=== PATIENT | male | born 1970 | race Caucasian/White ===

== ENCOUNTER 2017-03-11 11:00 | Outpatient (RCR) | payer BC, SELFPAY | END 2017-03-12 23:59 | LOC: NS 11:00 | PROVIDERS: Family Provider Family Medicine; PCP Family Medicine; Visit Provider Family Medicine | DX: E66.01 Morbid (severe) obesity due to excess calories (principal); Z68.39 Body mass index [BMI] 39.0-39.9, adult; Z71.3 Dietary counseling and surveillance | CPT/HCPCS: 97803 ==

== ENCOUNTER 2017-04-08 11:00 | Outpatient (RCR) | payer BC, SELFPAY | END 2017-04-09 23:59 | LOC: NS 11:00 | PROVIDERS: Family Provider Family Medicine; PCP Family Medicine; Visit Provider Family Medicine | DX: E66.01 Morbid (severe) obesity due to excess calories (principal); Z68.39 Body mass index [BMI] 39.0-39.9, adult; Z71.3 Dietary counseling and surveillance | CPT/HCPCS: 97803 ==

== ENCOUNTER 2017-04-29 12:18 | Outpatient (RCR) | payer BC, SELFPAY | END 2017-05-10 23:59 | LOC: NS 12:18 | PROVIDERS: Family Provider Family Medicine; PCP Family Medicine; Visit Provider Family Medicine | DX: E66.01 Morbid (severe) obesity due to excess calories (principal); Z68.39 Body mass index [BMI] 39.0-39.9, adult; Z71.3 Dietary counseling and surveillance | CPT/HCPCS: 97803 ==

== ENCOUNTER 2017-05-27 09:30 | Outpatient (RCR) | payer BC, SELFPAY | END 2017-05-27 09:31 | LOC: NS 09:30 | PROVIDERS: Family Provider Family Medicine; PCP Family Medicine; Visit Provider Family Medicine | DX: E66.01 Morbid (severe) obesity due to excess calories (principal); Z68.39 Body mass index [BMI] 39.0-39.9, adult; Z71.3 Dietary counseling and surveillance | CPT/HCPCS: 97803 ==

== ENCOUNTER 2017-07-21 16:29 | Outpatient (RCR) | payer BC, SELFPAY ==
--- NOTE | 2017-07-21 16:29 | DT_ITS ---
This patient was seen during an EMR downtime July 14, 2017 - July 21, 2017. This patient may have a combination of paper and electronic documentation or all paper documentation. All documentation is viewable within the e-chart portion of [employer] for each patient visit.
== END 2017-08-09 23:59 ==
LOC: NS 16:29
PROVIDERS: Family Provider Family Medicine; PCP Family Medicine; Visit Provider Family Medicine
DX: E66.01 Morbid (severe) obesity due to excess calories (principal); Z68.39 Body mass index [BMI] 39.0-39.9, adult; Z71.3 Dietary counseling and surveillance

== ENCOUNTER → 2018-12-28 11:16 | Outpatient (CLI) | payer OTHER, SELFPAY ==
[2018-12-28 15:37] LABS: Absolute Lymphocyte Count 1.44 X10^3/uL (0.83-4.51); Absolute Neutrophil Count 6.4 X10^3/uL (2.0-7.7); Basophil# 0.01 X10^3/uL; Basophil% 0.1 % (0-1); Hematocrit 43.6 % (40-54); Hemoglobin 15.1 g/dL (13.0-16.5); Lymphocyte # 1.44 X10^3/ul (4.0); Lymphocyte % 16.6 % (19-41); Mean Corp Hgb Conc 34.6 g/dL (32-36); Mean Corpuscular Hgb 30.4 pg (27.0-32.0); Mean Corpuscular Volume 87.9 fL (80-94); Mean Platelet Vol. 9.9 fl (6.2-12.0); Monocyte# 0.76 X10^3/uL; Monocyte% 8.8 % (0-10); NRBC Flagged by Analyzer 0 % (0-5); Neutrophil # 6.37 X10^3/uL (2.7-7.7); Neutrophil % 73.7 % (47-70); Platelet Count 230 K/mm3 (150-450); RBC Distribution Width CV 12.1 % (11.6-14.6); RBC Distribution Width SD 38.5 fl (35.1-43.9); Red Blood Count 4.96 M/mm3 (4.6-6.2); White Blood Count 8.7 K/mm3 (4.4-11.0)
[2018-12-28 15:58] LABS: Hemoglobin A1c 5.5 % (4.2-6.3)
[2018-12-28 16:02] LABS: ALB/GLOB Ratio 0.7 RATIO (0.9-2.4); AST(SGOT) 17 U/L (15-37); Alanine Aminotransfer ALT/SGPT 44 U/L (16-61); Albumin, Serum 3.5 g/dL (3.2-5.0); Alkaline Phosphatase 63 U/L (45-117); Anion Gap 11 (5-15); BUN 15 mg/dL (7-18); BUN/Creat Ratio 20.6 RATIO (10-20); Chloride 104 mmol/L (98-107); Cholesterol 154 mg/dL (200); Creatinine, Serum 0.73 mg/dL (0.70-1.30); EST Glomerular Filtration Rate 121 mL/min (>60); Est Glom Filt Rate - Afr Amer 147 mL/min (>60); Globulin 4.8 g/dL (2.2-4.2); Glucose 102 mg/dL (74-106); High Density Lipoprotein 28 mg/dL; Protein, Total 8.3 g/dL (6.4-8.2); Sodium Level 140 mmol/L (136-145); Triglycerides 77 mg/dL; Very Low Density Lipoprotein 15 mg/dL (5-40)
[2018-12-28 16:06] LABS: Vitamin B12 585 pg/mL (211-911)
[2018-12-28 16:12] LABS: Microalbumin,Random Urine 11.4 mg/L (NO RANGE EST.); Microalbumin:Creatinine Ratio 20.9 mg/g CRE (<30 mg/g CRE)
== END ==
PROVIDERS: Family Provider Family Medicine; PCP Family Medicine; Visit Provider Family Medicine
DX: Z00.00 Encounter for general adult medical examination without abnormal findings (principal); I10 Essential (primary) hypertension; E53.8 Deficiency of other specified B group vitamins
CPT/HCPCS: 36415; 80053; 80061; 82043; 82570; 82607; 83036; 85025

== ENCOUNTER 2021-10-09 13:01 | Observation (INO) | payer OTHER, SELFPAY ==
[2021-10-09 13:02] VITALS: BP 118/92; PULSE 87; RESP 18; TEMP 36.3; O2SAT 93; BMI 37.6
[2021-10-09 14:10] VITALS: RESP 18
--- NOTE | 2021-10-09 14:10 | CT_ITS ---
EXAM: CT SPINE - CERVICAL WITHOUT IV REASON FOR EXAM: Male, 51 years old. NECK PAIN trauma HISTORY: NECK PAIN trauma Individualized dose optimization techniques were used for this CT. TECHNIQUE: Multiplanar images were obtained of the cervical spine. IV contrast was not utilized. COMPARISON: None. FINDINGS: The vertebral bodies do maintain their height. The odontoid process is intact. No pre-vertebral soft tissue swelling is seen. The intravertebral disc height is lost. There are scattered lymph nodes in the neck. There are degenerative changes of the osseous structures. There is bilateral facet arthropathy. There are scattered levels of foraminal stenosis. There are vascular calcifications. There is mild straightening of the normal cervical lordosis. This can suggest neck strain. CT/Spine Cervical without Contras IMPRESSION: Degenerative changes of the cervical spine. There is mild straightening of the normal cervical lordosis. This can suggest neck strain. Electronically Signed: Eloy Jackson MD at 16:27 EDT ,
--- NOTE | 2021-10-09 14:10 | CT_ITS ---
EXAM: CT CHEST, ABDOMEN AND PELVIS WITH INTRAVENOUS CONTRAST CLINICAL INDICATION: trauma -- fall 14 steps, R upper back and lower flank injury Technologist Notes FELL DOWN 14 STEPS YESTERDAY, RT UPPER BACK AND FLANK INJURY, RIB PAIN TECHNIQUE: Helically acquired images were obtained of the chest, abdomen and pelvis with intravenous contrast. This CT exam was performed using one or more of the following dose reduction techniques: automated exposure control, adjustment of the mA and/or kV according to patient size, and/or use of iterative reconstruction technique. This report was created using [employer] report [employer] technology. CONTRAST: IV 100mL [id number] RADIATION DOSE: CTDIvol = 24.55 mGy, DLP = 2375.54 mGy-cm COMPARISON: None. FINDINGS: CHEST: LUNGS AND PLEURAL SPACES: See below. HEART: Unremarkable. Heart size is normal. No pericardial effusion. No significant coronary artery calcifications. MEDIASTINUM: Unremarkable. No mediastinal or hilar adenopathy. Esophagus is unremarkable. No hiatal hernia. THYROID: Unremarkable. No thyroid lesions. ABDOMEN: LIVER: Unremarkable. Homogeneous. No focal mass. GALLBLADDER AND BILE DUCTS: Unremarkable. No calcified gallstones. No gallbladder distention or wall edema. No intra- or extrahepatic biliary ductal dilation. PANCREAS: Unremarkable. No focal cystic or solid mass. SPLEEN: Unremarkable. Normal size without focal cystic or solid mass. ADRENALS: Unremarkable. No nodules. KIDNEYS AND URETERS: Unremarkable. Normal renal size and position. No hydronephrosis. STOMACH AND BOWEL: There is an umbilical hernia containing fat. There is no bowel involvement. There is no incarceration. There is no findings suggesting that this is causing a bowel obstruction. No focal inflammatory change. PELVIS: APPENDIX: The appendix is visualized and is normal. BLADDER: Unremarkable. REPRODUCTIVE: Unremarkable as visualized. No mass. CHEST, ABDOMEN and PELVIS: INTRAPERITONEAL SPACE: Unremarkable. No ascites or other fluid collection. No free air. BONES/JOINTS: Acute fracture of the right second through seventh rib. There is no pneumothorax. Lower lobe atelectasis. Acute left second through fifth lateral rib fractures. No suspicious lytic or blastic abnormality. SOFT TISSUES: See above. VASCULATURE: There are thoracic aortic calcifications consistent for atherosclerotic disease. There is no dissection or hematoma noted in the thoracic aorta. There are calcifications of the abdominal aorta. This is consistent for atherosclerotic disease. There is NO abdominal aortic aneurysm. Vascular workup can be obtained based on clinical correlation. No obvious central pulmonary embolism although this study was not performed with the pulmonary embolism protocol. LYMPH NODES: Unremarkable. No enlarged lymph nodes. CT/CT Chest, Abd, Pel w/Contrast IMPRESSION: Acute fracture of the right second through seventh rib. There is no pneumothorax. Lower lobe atelectasis. Acute left second through fifth lateral rib fractures. Electronically Signed: Eloy Jackson MD at 16:34 EDT ,
--- NOTE | 2021-10-09 14:10 | CT_ITS ---
EXAM: CT MAXILLOFACIAL WITHOUT INTRAVENOUS CONTRAST CLINICAL INDICATION: traumaTechnologist Notes FELL DOWN 14 STEPS YESTERDAY, RT UPPER BACK AND FLANK INJURY, RIB PAIN TECHNIQUE: Helically acquired images were obtained of the face without intravenous contrast. This CT exam was performed using one or more of the following dose reduction techniques: automated exposure control, adjustment of the mA and/or kV according to patient size, and/or use of iterative reconstruction technique. This report was created using [employer] report generation technology. RADIATION DOSE: CTDIvol = 29.38 mGy, DLP = 613.57 mGy-cm COMPARISON: None. FINDINGS: BONES/JOINTS: Unremarkable. No displaced fracture. No discrete lytic or blastic abnormalities. SOFT TISSUES: Unremarkable. No focal subcutaneous swelling. No discrete fluid collections. ORBITS: Unremarkable. Both globes are unremarkable. Extraocular muscles are normal. Retrobulbar fat appears unremarkable. SINUSES: There is a mucous retention cyst and/or polyp of the left maxillary sinus. MASTOID AIR CELLS: Unremarkable as visualized. Clear. DENTAL: No acute findings. No periodontal osseous erosion. CT/Sinus/Facial Bone IMPRESSION: No acute findings in the face. Electronically Signed: Eloy Jackson MD at 16:28 EDT ,
--- NOTE | 2021-10-09 14:10 | CT_ITS ---
STUDY: CT BRAIN WITHOUT CONTRAST REASON FOR EXAM: Male, 51 years old. HEADACHE trauma TECHNIQUE: Transaxial CT imaging of the brain was performed without administration of intravenous contrast material. Individualized dose optimization techniques were used for this CT. COMPARISON: None FINDINGS: Normal calvarium. Normal soft tissues. Normal size ventricles and extra-axial spaces for the patient''s age. Normal white matter tracts of the cerebral hemispheres. Normal basal ganglia and thalami. Normal brainstem. Normal cerebellum. There is no intracranial hemorrhage. There are no findings of an acute ischemic infarction. Normal visualized paranasal sinuses. ASPECTS 10 CT/Brain/Head without Contrast IMPRESSION: There are no acute intracranial findings. Electronically Signed: Eloy Jackson MD at 16:26 EDT ,
--- NOTE | 2021-10-09 14:11 | EKG12_ITS ---
Test Reason : fall Blood Pressure : / mmHG Vent. Rate : 068 BPM Atrial Rate : 068 BPM P-R Int : 124 ms QRS Dur : 098 ms QT Int : 400 ms P-R-T Axes : 037 000 020 degrees QTc Int : 425 ms Normal sinus rhythm Normal ECG Confirmed by OLGA INMAN, MARIE ([id number]), newspaper editor ISRRAEL QUESADA ([id number]) on 10/11/2021 8:10:19 AM Referred By: Carlita Confirmed By:MARIE ESPINOZA MD
--- NOTE | 2021-10-09 14:14 | ED.VIS.FALL ---
HPI HPI - Fall History of Present Illness Chief Complaint: Fall Informant: patient Narrative Narrative: Mechanical fall multiple injuries yesterday at 7:30 PM. Wears compression stockings going down to the basement slipped on carpeted steps directly on his back. He also had a head injury he states may have rolled however denies losing consciousness. No anticoagulation medicines. States stubborn therefore did not come yesterday. History of hypertension on medications. Pain mostly to the lower back and upper back. Pain with deep breaths. Left shoulder pain. Head injuries. Denies headache. Denies nausea or vomiting. Denies any allergies. Tetanus Immunization: >10 years Prior similar symptoms: No PFSH PFSH Medical History HTN (hypertension) Home Medications amlodipine 10 mg tablet 10 mg PO DAILY heart 10/09/21 [History Last Taken 10/09/21] lisinopril 10 mg-hydrochlorothiazide 12.5 mg tablet 1 tab PO DAILY bp 10/09/21 [History Last Taken 10/09/21] Allergy/AdvReac Type Severity Reaction Status Date / Time No Known Allergies Allergy Verified 10/09/21 13:02 Family History (Updated 10/09/21 @ 18:18 by China Chowdary DIMENSIONAL ENGINEER, DIMENSIONAL ENGINEER-C) Father Cancer Prostate Mother Cancer History of breast cancer Social History (Updated 10/09/21 @ 18:19 by China Chowdary NP, DIMENSIONAL ENGINEER-C) household members: spouse Smoking Status: Former smoker alcohol intake: current alcohol intake frequency: a few times a week substance use type: does not use ROS ROS ED Constitutional Constitutional ED: Denies chills, fever(s) or sweats Eyes Eyes: Denies change in vision ENT ENT ED: Denies dysphagia or sore throat Cardiovascular Cardiovascular: Denies chest pain, leg edema, palpitations or racing heartbeat Respiratory/Chest Respiratory/Chest: Denies cough, dyspnea or dyspnea on exertion Gastrointestinal Gastrointestinal: Denies abdominal pain, diarrhea, nausea or vomiting Genitourinary Genitourinary ED: Denies dysuria, hematuria or urinary frequency Musculoskeletal Musculoskeletal: Reports back pain; Denies extremity pain or neck pain Integumentary Denies rash or wounds Neurologic Neurologic: Denies headache(s), paresthesias or weakness EXAM Physical Exam Const Vital Signs: 10/09/21 13:02 10/09/21 13:43 10/09/21 14:10 Temperature 97.3 F L Temperature Source Temporal Pulse Rate 87 Respiratory Rate 18 18 Respiratory Effort Normal Non-Labored Blood Pressure 118/92 H Blood Pressure Mean 100 Pulse Ox 93 Oxygen Delivery Method Room Air Room Air Positive well nourished and well developed Constitutional Narrative: GCS 15 General Appearance ED: well developed and NAD HEENT Reports TM's clear and moist mucous membranes HEENT Narrative: abrasion to the lateral forehead left side. Dried blood in the naris no septal hematoma. No trismus. No zygomatic tenderness. No proptosis or entrapment. normocephalic Tympanic Membrane ED: Yes TM's clear Eyes PERRL, EOMs intact bilaterally and conjunctivae normal General Eye ED: Yes normal appearance of both eyes Neck full ROM, no lymphadenopathy and supple Neck Narrative: No midline tenderness or step-offs. General: Negative for tenderness Chest Wall Chest Narrative: Tender palpation lateral sternum with no crepitus. Symmetric breath sounds. Chest: Negative for tenderness Resp normal respiratory effort and normal air movement Effort and Inspection: symmetric chest movement; Negative for respiratory distress Cardio regular rate, regular rhythm and no murmurs Peripheral Pulses: pulses 2+ throughout GI normal to inspection, nondistended, normoactive bowel sounds and non-tender Palpation: Negative for guarding or rebound tenderness present Back/Spine no CVA tenderness Back/Spine Narrative: No midline tenderness thoracic lumbar spine. There is tenderness along the left thoracic paraspinal region. There is ecchymosis along the lower flank bilaterally left greater than right. Skin is intact. Extremity normal to inspection Extremity Narrative: No clavicle tenderness. Tender palpation left proximal shoulder with abrasion, no deformities. Pain with range of motion. Neurovascular intact distally. Negative logroll bilateral lower extremities. Pulses intact x4. General Extremety ED: Negative for edema or tenderness General Extremity: Negative for edema Neuro oriented x3, CN's II-XII intact bilaterally, moves all extremities and no sensory deficits noted Sensorium / Orientation: awake and alert Skin no rashes or lesions noted and no wounds MDM MDM MDM Narrative Medical decision making narrative: Patient fall directly on his back skating down 14 steps. Signs of head injury. Large flank contusion tenderness. Thoracic region. Symmetric breath sounds. IVs placed fentanyl given. Trauma scans head neck and face returned negative. Trauma scans chest abdomen pelvis notes multiple rib fractures, 6 rib fractures on the right, 4 rib fractures on the left, no pneumothorax. Single fractures, no flail chest. No pulmonary contusion. There is no intra-abdominal or retroperitoneal findings. He required additional fentanyl for pain control. Left shoulder x-ray 2 views reviewed by myself and read by radiology negative for any acute process. With multiple rib fracture discussed with hospitalist Dr. Neil for admission. Lab Data Attestation: I reviewed the patient's lab results. Labs: Laboratory Results - last 24 hr 10/09/21 10/09/21 10/09/21 14:36 14:36 14:36 WBC 13.6 H RBC 5.21 Hgb 16.3 Hct 45.2 MCV 86.8 MCH 31.3 MCHC 36.1 H RDW Std Deviation 39.2 RDW Coeff of Marissa 12.4 Plt Count 203 MPV 10.0 Immature Gran % (Auto) 0.500 Neut % (Auto) 73.3 H Lymph % (Auto) 13.5 L [place] % (Auto) 12.4 H Eos % (Auto) 0.1 Baso % (Auto) 0.2 Absolute Neuts (auto) 10.0 H Absolute Lymphs (auto) 1.83 Nucleated RBC % 0 Diff Path Review May foll Platelet Estimate ADEQUATE RBC Morphology NORM C+C PT Cancelled INR Cancelled APTT Cancelled Sodium 137 Potassium 3.2 L Chloride 103 Carbon Dioxide 25.0 Anion Gap 9 BUN 12 Creatinine 0.76 Estim Creat Clear Calc 121.10 Est GFR (MDRD) Af Amer 139 Est GFR (MDRD) Non-Af 115 BUN/Creatinine Ratio 15.9 Glucose 122 H Calcium 9.5 10/09/21 15:26 WBC RBC Hgb Hct MCV MCH MCHC RDW Std Deviation RDW Coeff of Marissa Plt Count MPV Immature Gran % (Auto) Neut % (Auto) Lymph % (Auto) [place] % (Auto) Eos % (Auto) Baso % (Auto) Absolute Neuts (auto) Absolute Lymphs (auto) Nucleated RBC % Diff Path Review Platelet Estimate RBC Morphology PT 15.0 H INR 1.2 APTT 23.8 L Sodium Potassium Chloride Carbon Dioxide Anion Gap BUN Creatinine Estim Creat Clear Calc Est GFR (MDRD) Af Amer Est GFR (MDRD) Non-Af BUN/Creatinine Ratio Glucose Calcium Radiography Diagnostic Testing: Clinical Impression(s) from Imaging Studies Brain CT 10/09/21 14:10 IMPRESSION: There are no acute intracranial findings. Electronically Signed: Eloy Jackson MD at 16:26 EDT , Cervical Spine CT 10/09/21 14:10 IMPRESSION: Degenerative changes of the cervical spine. There is mild straightening of the normal cervical lordosis. This can suggest neck strain. Electronically Signed: Eloy Jackson MD at 16:27 EDT , Chest/Abdomen/Pelvis CT 10/09/21 14:10 IMPRESSION: Acute fracture of the right second through seventh rib. There is no pneumothorax. Lower lobe atelectasis. Acute left second through fifth lateral rib fractures. Electronically Signed: Eloy Jackson MD at 16:34 EDT , Facial/Sinus 10/09/21 14:10 IMPRESSION: No acute findings in the face. Electronically Signed: Eloy Jackson MD at 16:28 EDT , Shoulder X-Ray 10/09/21 16:00 IMPRESSION: There are no acute findings of the shoulder. Electronically Signed: Eloy Jackson MD at 16:29 EDT , EKG Initial EKG: Attestation: I personally reviewed and interpreted this EKG as follows: Comments: Sinus rhythm 68, no ST changes.-T wave version lead III. Nonspecific. Discharge Plan Dx/Rx/DC Orders Clinical Impression: Multiple fractures of ribs of both sides, Lumbar contusion, Contusion of left shoulder, Abrasion of face Disposition Disposition: Acute Care Hospital [facility] Discharge Date/Time: 10/09/21 18:33
[2021-10-09] MEDS: 0.9% Normal Saline 1,000 ML 150 ML IV (14:29)
[2021-10-09] MEDS: fentaNYL 100 MCG/2 ML Ampul 50 MCG IV ×2 (14:30→17:46)
[2021-10-09] MEDS: Ondansetron 4 MG/2 ML Vial IV (14:30)
[2021-10-09 14:57] LABS: Absolute Lymphocyte Count 1.83 X10^3/uL (0.83-4.51); Basophil# 0.03 X10^3/uL; Basophil% 0.2 % (0-1); Eosinophil# 0.02 X10^3/uL; Eosinophils% 0.1 % (0-5); Hematocrit 45.2 % (40-54); Hemoglobin 16.3 g/dL (13.0-16.5); Lymphocyte # 1.83 X10^3/ul (0.83-4.51); Lymphocyte % 13.5 % (19-41); Mean Corp Hgb Conc 36.1 g/dL (32-36); Mean Corpuscular Hgb 31.3 pg (27.0-32.0); Mean Corpuscular Volume 86.8 fL (80-94); Monocyte# 1.68 X10^3/uL; Monocyte% 12.4 % (0-10); NRBC Flagged by Analyzer 0 % (0-5); Neutrophil # 9.97 X10^3/uL (2.7-7.7); Neutrophil % 73.3 % (47-70); POSITIVE DIFFERENTIAL YES; Platelet Count 203 K/mm3 (150-450); RBC Distribution Width CV 12.4 % (11.6-14.6); RBC Distribution Width SD 39.2 fl (35.1-43.9); Red Blood Count 5.21 M/mm3 (4.6-6.2); White Blood Count 13.6 K/mm3 (4.4-11.0)
[2021-10-09 14:59] LABS: Differential Indicated SCAN CRITERIA MET
[2021-10-09 15:20] LABS: Platelet Estimate ADEQUATE (ADEQ); Red Cell Morphology NORM C+C NORMAL (NORM C&C)
[2021-10-09 15:21] LABS: Anion Gap 9 (5-15); BUN 12 mg/dL (7-18); BUN/Creat Ratio 15.9 RATIO (10-20); Calcium,Total 9.5 mg/dL (8.5-10.1); Chloride 103 mmol/L (98-107); Creatinine, Serum 0.76 mg/dL (0.70-1.30); EST Glomerular Filtration Rate 115 mL/min (>60); Est Glom Filt Rate - Afr Amer 139 mL/min (>60); Glucose 122 mg/dL (74-106); Potassium 3.2 mmol/L (3.5-5.1); Sodium Level 137 mmol/L (136-145)
[2021-10-09] MEDS: Diphth,Pertuss(Acell),Tet Vac 0.5 ML Vial IM (15:38)
[2021-10-09 15:43] LABS: International Normalized Ratio 1.2; Partial Thromboplast Time 23.8 Seconds (24.1-36.2)
--- NOTE | 2021-10-09 16:00 | RAD_ITS ---
STUDY: XR Shoulder Min 2 Views REASON FOR EXAM: Male, 51 years old. injury pain TECHNIQUE: XR Shoulder Min 2 Views LEFT COMPARISON: None. FINDINGS: Normal glenohumeral articulation. Normal acromioclavicular joint. Normal acromion. There is no demonstrated inferior acromial spur. Normal humeral head and visualized proximal humerus. The soft tissue structures are unremarkable. Normal visualized pulmonary apex. RAD/Shoulder min 2 Views IMPRESSION: There are no acute findings of the shoulder. Electronically Signed: Eloy Jackson MD at 16:29 EDT Reading Location ID and State: [facility] / [place] , Service support ,
--- NOTE | 2021-10-09 18:14 | PCM.HP.STD ---
Documented by User: China Chowdary NP, TELEPHONE APPOINTMENT CLERK-C 10/09/21 18:24 [facility] - General General Date of Admission: 10/09/21 Date of Service: 10/09/21 Chief Complaint: Uncontrolled rib pain following fall. HPI Narrative PRAKASH JIMENEZ, is a 51 M who presents to the emergency room due to intractable rib pain following fall. Patient states he fell down flight of stairs at his home last night. Patient states he was wearing compression stockings down steps and fell onto his back and ribs. He denies head injury. Denies loss of consciousness. He thought he could manage his pain at home however his pain has been uncontrolled. He states he is having difficulty taking a deep breath due to increased pain. He reports a history of hypertension, ACACIA. Denies other past medical history. [facility] Medical History HTN (hypertension) Home Medications amlodipine 10 mg tablet 10 mg PO DAILY heart 10/09/21 [History Last Taken 10/09/21] lisinopril 10 mg-hydrochlorothiazide 12.5 mg tablet 1 tab PO DAILY bp 10/09/21 [History Last Taken 10/09/21] Allergy/AdvReac Type Severity Reaction Status Date / Time No Known Allergies Allergy Verified 10/09/21 13:02 Family History (Updated 10/09/21 @ 18:18 by China Chowdary NP, TELEPHONE APPOINTMENT CLERK-C) Father Cancer Prostate Mother Cancer History of breast cancer Surgical History no surgical history no surgical history Social History (Updated 10/09/21 @ 18:19 by China Chowdary NP, TELEPHONE APPOINTMENT CLERK-C) household members: spouse Smoking Status: Former smoker alcohol intake: current alcohol intake frequency: a few times a week substance use type: does not use ROS Constitutional Constitutional: Denies change in weight, chills, fatigue, fever(s) or weakness Cardiovascular Cardiovascular: Denies chest pain, edema, lightheadedness, palpitations or syncope Respiratory/Chest Respiratory/Chest: Denies cough, dyspnea, productive cough, shortness of breath at rest, shortness of breath with exertion or wheezing Gastrointestinal Gastrointestinal: Denies abdominal pain, constipation, diarrhea, nausea or vomiting Genitourinary Genitourinary: Denies burning urination, difficulty urinating, dysuria, hematuria, urinary frequency, urinary incontinence or urinary urgency Musculoskeletal Musculoskeletal: Reports back pain and other Details: Rib and back pain ; Denies joint pain or muscle weakness Integumentary Integumentary: Denies erythema, lesions, rash or wounds Neurologic Neurologic: Denies abnormal speech, confusion, dizziness, focal weakness, numbness, paresthesias, seizure-like activity or syncope Psychiatric Psychiatric: Denies anxiety or depression Hematologic/Lymphatic Hematologic/Lymphatic: Denies anemia, easy bleeding or easy bruising Allergic/Immunologic Allergic/Immunologic: Denies hives or asthma Vital Signs Vital Signs Vital Signs: 10/09/21 13:02 10/09/21 13:43 10/09/21 14:10 Temperature 97.3 F L Temperature Source Temporal Pulse Rate 87 Respiratory Rate 18 18 Respiratory Effort Normal Non-Labored Blood Pressure 118/92 H Blood Pressure Mean 100 Pulse Ox 93 Oxygen Delivery Method Room Air Room Air Weight Weight: 270 lb Body Mass Index (BMI) 37.6 Physical Exam Const alert and oriented x3 HEENT normocephalic and moist oral mucous membranes Eyes PERRL, EOMs intact bilaterally and conjunctivae normal Neck no lymphadenopathy Resp normal respiratory effort and clear to auscultation bilaterally Cardio regular rate, regular rhythm and no murmurs Peripheral Pulses: pulses 2+ throughout GI normal to inspection, nondistended, normoactive bowel sounds, non-tender and non-distended Extremity normal to inspection Skin no rashes or lesions noted Skin Narrative: Left flank area ecchymosis Lesions: no lesions Rashes: no rashes Trauma: no lacerations or abrasions Neuro CN's II-XII intact bilaterally, no focal motor deficits, no sensory deficits noted and deep tendon reflexes 2+ bilaterally Psych mental status grossly normal and affect normal Results Lab / Micro Data Result Diagrams: 10/09/21 14:36 10/09/21 14:36 Labs: Laboratory Results - last 24 hr 10/09/21 14:36: WBC 13.6 H, RBC 5.21, Hgb 16.3, Hct 45.2, MCV 86.8, MCH 31.3, MCHC 36.1 H, RDW Std Deviation 39.2, RDW Coeff of Marissa 12.4, Plt Count 203, MPV 10.0, Immature Gran % (Auto) 0.500, Neut % (Auto) 73.3 H, Lymph % (Auto) 13.5 L, [place] % (Auto) 12.4 H, Eos % (Auto) 0.1, Baso % (Auto) 0.2, Absolute Neuts (auto) 10.0 H, Absolute Lymphs (auto) 1.83, Nucleated RBC % 0, Diff Path Review May foll, Platelet Estimate ADEQUATE, RBC Morphology NORM C+C 10/09/21 14:36: PT Cancelled, INR Cancelled, APTT Cancelled 10/09/21 14:36: Sodium 137, Potassium 3.2 L, Chloride 103, Carbon Dioxide 25.0, Anion Gap 9, BUN 12, Creatinine 0.76, Estim Creat Clear Calc 121.10, Est GFR (MDRD) Af Amer 139, Est GFR (MDRD) Non-Af 115, BUN/Creatinine Ratio 15.9, Glucose 122 H, Calcium 9.5 10/09/21 15:26: PT 15.0 H, INR 1.2, APTT 23.8 L Radiology Impression Brain CT 10/09/21 14:10 IMPRESSION: There are no acute intracranial findings. Electronically Signed: Eloy Jackson MD at 16:26 EDT , Cervical Spine CT 10/09/21 14:10 IMPRESSION: Degenerative changes of the cervical spine. There is mild straightening of the normal cervical lordosis. This can suggest neck strain. Electronically Signed: Eloy Jackson MD at 16:27 EDT , Chest/Abdomen/Pelvis CT 10/09/21 14:10 IMPRESSION: Acute fracture of the right second through seventh rib. There is no pneumothorax. Lower lobe atelectasis. Acute left second through fifth lateral rib fractures. Electronically Signed: Eloy Jackson MD at 16:34 EDT , Facial/Sinus 10/09/21 14:10 IMPRESSION: No acute findings in the face. Electronically Signed: Eloy Jackson MD at 16:28 EDT , Shoulder X-Ray 10/09/21 16:00 IMPRESSION: There are no acute findings of the shoulder. Electronically Signed: Eloy Jackson MD at 16:29 EDT , Assessment & Plan Assessment/Plan (1) Rib fracture: PLAN: Plan 1. Intractable pain secondary to acute traumatic right second through seventh rib fractures and acute left second through fifth lateral rib fractures-related to mechanical fall. PT/OT. As needed pain regimen. Incentive spirometer. 2. Hypertension-stable, continue home amlodipine, lisinopril/HCTZ. 3. ACACIA-on CPAP. 4. Obesity- encouraged diet and lifestyle modifications. DVT prophylaxis-Heparin subcu This patient was seen by PINA Vega under the supervision of Dr. Neil. Time spent examining patient, reviewing data and subsequent management of care: 20 minutes Documented by User: Dr. Keshawn Neil DO 10/09/21 18:52 HPI - General General Date of Admission: 10/09/21 [facility] Medical History HTN (hypertension) Home Medications amlodipine 10 mg tablet 10 mg PO DAILY heart 10/09/21 [History Last Taken 10/09/21] lisinopril 10 mg-hydrochlorothiazide 12.5 mg tablet 1 tab PO DAILY bp 10/09/21 [History Last Taken 10/09/21] Allergy/AdvReac Type Severity Reaction Status Date / Time No Known Allergies Allergy Verified 10/09/21 13:02 Family History (Updated 10/09/21 @ 18:18 by China Chowdary TELEPHONE APPOINTMENT CLERK, TELEPHONE APPOINTMENT CLERK-C) Father Cancer Prostate Mother Cancer History of breast cancer Surgical History no surgical history Social History (Updated 10/09/21 @ 18:19 by China Chowdary NP, TELEPHONE APPOINTMENT CLERK-C) household members: spouse Smoking Status: Former smoker alcohol intake: current alcohol intake frequency: a few times a week substance use type: does not use Results Lab / Micro Data Result Diagrams: 10/09/21 14:36 10/09/21 14:36 Assessment & Plan Assessment/Plan (1) Rib fracture: Charges/Coding Addendum Addendum: Patient was seen and examined today independently of China Chowdary, he came to the ER today with complaints of bilateral rib pain after falling down a flight of stairs to the basement last night, he does not complain of any shortness of breath and his O2 sat on room air at this time is 95%. Work-up in the ER included a CBC which showed a white blood cell count of 13.6, chemistry profile was remarkable for potassium of 3.2, chest CT showed an acute fracture of the right second through seventh rib without a pneumothorax, there is lower lobe atelectasis noted, there is an acute left second through fifth rib fractures laterally also noted. Remainder of the patient's imaging studies were unremarkable. At the time of my examination, patient had not been given any pain medicines and he appeared slightly uncomfortable complaining of bilateral rib pain. On examination he appeared in good health and spirits. Vital signs as documented. Skin warm and dry and without overt rashes. There was bruising noted over the patient's lower lumbar area on the left side extending to the midline. Neck without JVD, neck was supple, trachea midline, thyroid was normal. Lungs clear bilaterally, normal air movement was noted. Heart exam notable for regular rhythm, normal sounds and absence of murmurs, rubs or gallops. Abdomen unremarkable and without evidence of organomegaly, masses, or abdominal aortic enlargement. Bowel sounds are present, abdomen is not distended. Extremities nonedematous, no cyanosis was noted, no clubbing was noted. Neuro: Cranial nerves II through XII are grossly intact, no focal motor deficits were noted, sensation to light touch and pinprick intact, motor exam 5/5 throughout. Psych: Patient is alert and oriented x3, he does not appear anxious or depressed, he does not appear agitated. Impression: #1 bilateral rib fractures without evidence of pneumothorax-patient will be placed in observation status on MedSurg 3, he will be started on MS Contin 30 mg twice daily, ibuprofen 600 mg every 6 hours, and he will be given IV morphine as needed pain, patient will be seen by PT and OT #2 essential hypertension-patient will remain on his home blood pressure medications while in the hospital here #3 contusion to the left lower back area and the nasal area-supportive care and pain meds will be given I have reviewed China Chowdary's history and physical including her medical assessment and plan of care and with the above additions endorse it. Total clinical time spent by myself addressing the patient's medical issues, reviewing the data, and collaborating with patient's care team: 40 minutes Visit Charges OBSV E&M: [id number] Initial observation care L2
[2021-10-09 18:15] VITALS: BP 120/87; PULSE 87; RESP 18; TEMP 36.3; O2SAT 95
[2021-10-09 18:17] VITALS: BMI 37.5
[2021-10-09 19:02] VITALS: BP 136/74; PULSE 78; RESP 16; TEMP 36.6; O2SAT 95
[2021-10-09] MEDS: morphine SR 15 MG Tablet 30 MG PO (19:23)
[2021-10-09] MEDS: Potassium Chloride Oral Tablet 20 MEQ 40 MEQ PO (19:24)
[2021-10-09] MEDS: Ibuprofen 600 MG Tablet PO (19:24)
[2021-10-09 19:47] VITALS: O2SAT 98
[2021-10-09] MEDS: 0.9% Saline Lock 10 ML Syringe IV (21:29)
[2021-10-09] MEDS: Morphine 4 MG/ML Syringe IV (21:29)
[2021-10-10 00:45] VITALS: BP 140/83; PULSE 67; RESP 16; TEMP 36.4; O2SAT 98
[2021-10-10] MEDS: Ibuprofen 600 MG Tablet PO ×3 (00:55→12:11)
[2021-10-10] MEDS: Morphine 4 MG/ML Syringe IV ×3 (00:55→09:14)
[2021-10-10 05:44] VITALS: BP 129/71; PULSE 60; RESP 18; TEMP 36.5; O2SAT 100
[2021-10-10] MEDS: 0.9% Saline Lock 10 ML Syringe IV ×3 (06:03→20:17)
--- NOTE | 2021-10-10 08:53 | PCM.PN.HOSP ---
Subjective Subjective Feels better. Using the incentive spirometer. Still with a lot of pain particular when he moves, coughs or takes a deep breath. Objective Data Objective Data Vital Signs: Vital Signs Temp Pulse Resp BP Pulse Ox O2 Del Method O2 Flow Rate 36.5 C L 60 18 129/71 H 100 Nasal Cannula 2 10/10/21 05:44 10/10/21 05:44 10/10/21 05:44 10/10/21 05:44 10/10/21 05:44 10/10/21 05:44 10/10/21 05:44 Oxygen Flow Rate (L/min) 2 Oxygen Delivery Method Nasal Cannula Weight: 122.036 kg Body Mass Index (BMI) 37.5 Intake & Output: Intake and Output for Last 24 Hours 10/08/21 10/09/21 10/10/21 23:59 23:59 23:59 Intake Total 680 / 680 855.75 / 855.75 Output Total 400 / 400 Balance 680 / 680 455.75 / 455.75 Lab / Micro Data Result Diagrams: 10/09/21 14:36 10/09/21 14:36 Labs: Laboratory Results - last 24 hr 10/09/21 14:36: WBC 13.6 H, RBC 5.21, Hgb 16.3, Hct 45.2, MCV 86.8, MCH 31.3, MCHC 36.1 H, RDW Std Deviation 39.2, RDW Coeff of Marissa 12.4, Plt Count 203, MPV 10.0, Immature Gran % (Auto) 0.500, Neut % (Auto) 73.3 H, Lymph % (Auto) 13.5 L, Reynolds % (Auto) 12.4 H, Eos % (Auto) 0.1, Baso % (Auto) 0.2, Absolute Neuts (auto) 10.0 H, Absolute Lymphs (auto) 1.83, Nucleated RBC % 0, Diff Path Review May foll, Platelet Estimate ADEQUATE, RBC Morphology NORM C+C 10/09/21 14:36: PT Cancelled, INR Cancelled, APTT Cancelled 10/09/21 14:36: Sodium 137, Potassium 3.2 L, Chloride 103, Carbon Dioxide 25.0, Anion Gap 9, BUN 12, Creatinine 0.76, Estim Creat Clear Calc 121.10, Est GFR (MDRD) Af Amer 139, Est GFR (MDRD) Non-Af 115, BUN/Creatinine Ratio 15.9, Glucose 122 H, Calcium 9.5 10/09/21 15:26: PT 15.0 H, INR 1.2, APTT 23.8 L Radiography Diagnostic Testing: Radiology Impression Brain CT 10/09/21 14:10 IMPRESSION: There are no acute intracranial findings. Electronically Signed: Eloy Jackson MD at 16:26 EDT , Cervical Spine CT 10/09/21 14:10 IMPRESSION: Degenerative changes of the cervical spine. There is mild straightening of the normal cervical lordosis. This can suggest neck strain. Electronically Signed: Eloy Jackson MD at 16:27 EDT Reading Location ID and State: [id number] / [place] , Service support , Chest/Abdomen/Pelvis CT 10/09/21 14:10 IMPRESSION: Acute fracture of the right second through seventh rib. There is no pneumothorax. Lower lobe atelectasis. Acute left second through fifth lateral rib fractures. Electronically Signed: Eloy Jackson MD at 16:34 EDT Reading Location ID and State: [id number] / [place] , Service support , Facial/Sinus 10/09/21 14:10 IMPRESSION: No acute findings in the face. Electronically Signed: Eloy Jackson MD at 16:28 EDT , Shoulder X-Ray 10/09/21 16:00 IMPRESSION: There are no acute findings of the shoulder. Electronically Signed: Eloy Jackson MD at 16:29 EDT , Physical Exam Const alert HEENT HEENT Narrative: Ecchymosis on the left nares and left cheek. Back/Spine normal to inspection Back/Spine Narrative: Bilateral thoracic paraspinal tenderness. Cervical Spine: Negative for paracervical muscle tenderness, Negative for paracervical muscle spasm and Negative for trapevius muscle tenderness Thoracic Spine / Upper Back: paraspinal muscle tenderness Extremity normal to inspection Psych affect normal Assessment & Plan Assessment/Plan (1) Rib fracture: PLAN: Patient has acute fractures of the right second through seventh rib and left second through fifth ribs. Patient advised that there is no surgical options. Pain control has helped but has not been efficient enough to help him be more functional. Plan is to change his medications around. MS Contin will be discontinued and patient will be started on as needed oxycodone, scheduled acetaminophen, Lidoderm patch, continue with ibuprofen. Patient advised that his rib fractures are going to take weeks to be asymptomatic though I would expect him to continue to feel better in the short-term. Patient will need to remain off work at least until the following Friday (2) Strain of thoracic paraspinal muscles excluding T1 and T2 levels: PLAN: Also secondary to fall which seem to give the patient significant discomfort Add cyclobenzaprine PLAN: Plan Will reevaluate the patient today to see if he may be ready to go home. Charges/Coding Visit Charges OBSV E&M: 21609 Subsequent observation care L2
[2021-10-10 09:01] VITALS: BP 128/75; PULSE 77; RESP 18; TEMP 36.5; O2SAT 97
[2021-10-10] MEDS: cycloBENZAPRine HCl 10 MG Tablet PO ×3 (09:12→21:41)
[2021-10-10] MEDS: Lidocaine 5% Patch 2 PATCH TOPICAL (09:12)
[2021-10-10] MEDS: Lisinopril 10 MG Tablet PO (09:13)
[2021-10-10] MEDS: amLODIPine 10 MG Tablet PO (09:13)
[2021-10-10] MEDS: hydroCHLOROthiazide 12.5mg 12.5 MG PO (09:13)
[2021-10-10] MEDS: Acetaminophen 500 MG Tablet 1000 MG PO ×3 (09:13→21:40)
[2021-10-10 13:52] LABS: Pathologist Review Reviewed
[2021-10-10] MEDS: Ketorolac 15 MG/ML Vial IV ×2 (14:55→20:17)
[2021-10-10 15:00] VITALS: BP 129/71; PULSE 64; RESP 18; TEMP 36.2; O2SAT 97
[2021-10-10] MEDS: oxyCODONE 5 MG Tablet 10 MG PO ×2 (17:12→21:40)
[2021-10-10 21:33] VITALS: BP 134/67; PULSE 70; RESP 18; TEMP 36.6; O2SAT 98
[2021-10-11 03:13] VITALS: BP 153/96; PULSE 72; RESP 18; TEMP 36.6; O2SAT 95
[2021-10-11] MEDS: Ketorolac 15 MG/ML Vial IV ×3 (03:17→13:37)
[2021-10-11] MEDS: 0.9% Saline Lock 10 ML Syringe IV ×3 (03:17→13:39)
[2021-10-11] MEDS: oxyCODONE 5 MG Tablet 10 MG PO ×2 (03:32→15:29)
[2021-10-11] MEDS: Acetaminophen 500 MG Tablet 1000 MG PO ×2 (06:12→15:30)
[2021-10-11] MEDS: cycloBENZAPRine HCl 10 MG Tablet PO ×2 (06:12→13:37)
[2021-10-11 08:29] VITALS: BP 124/78; PULSE 74; RESP 18; TEMP 36.6; O2SAT 95
[2021-10-11] MEDS: Lisinopril 10 MG Tablet PO (08:41)
[2021-10-11] MEDS: Docusate Sodium 100 MG Capsule 200 MG PO (08:41)
[2021-10-11] MEDS: amLODIPine 10 MG Tablet PO (08:41)
[2021-10-11] MEDS: hydroCHLOROthiazide 12.5mg 12.5 MG PO (08:41)
[2021-10-11] MEDS: Lidocaine 5% Patch 2 PATCH TOPICAL (08:42)
--- NOTE | 2021-10-11 10:00 | CASEMGMT ---
Addendum entered by Charisse Navarrete 10/11/21 14:46: TC to [employer] [place] states that they are working on the order now, then will send to local branch. Addendum entered by Charisse Navarrete 10/11/21 13:26: TC to [facility] to check on [facility] status, left message. Addendum entered by Charisse Navarrete 10/11/21 10:35: Referal for [facility] sent via [employer] at this time, also emailed liaison. Addendum entered by Charisse Navarrete 10/11/21 10:07: Discussed pt with hospitalist, [facility] rx signed and therapy reordered for eval today as pt stated it took two people to trf. ZAHEER VARELA back in to pt room, provided pt with a local in network list of DME companies, pt chose [facility]. Original Note: ZAHEER VARELA noted no therapy recommended. ZAHEER VARELA in to pt room, pt sitting up in chair. Pt states he has his to assist him at home, his children are too small to assist yet. Pt denies need for any therapy d/t pain. Pt states he plans to return home. ZAHEER VARELA to follow.
--- NOTE | 2021-10-11 10:39 | PN.HOSP_ITS ---
Subjective Subjective Is been able to walk to the restroom. Had difficulty getting out of bed requiring assistance this morning. Overall states that his pain is better. Objective Data Objective Data Vital Signs: Vital Signs Temp Pulse Resp BP Pulse Ox O2 Del Method O2 Flow Rate 36.6 C 74 18 124/78 H 95 Room Air 2 10/11/21 08:29 10/11/21 08:29 10/11/21 08:29 10/11/21 08:29 10/11/21 08:29 10/11/21 08:29 10/10/21 05:44 Oxygen Flow Rate (L/min) 2 Oxygen Delivery Method Room Air Weight: 122.036 kg Body Mass Index (BMI) 37.5 Intake & Output: Intake and Output for Last 24 Hours 10/09/21 10/10/21 10/11/21 23:59 23:59 23:59 Intake Total 680 / 680 855.75 / 855.75 900 / 900 Output Total 400 / 400 500 / 500 Balance 680 / 680 455.75 / 455.75 400 / 400 Lab / Micro Data Result Diagrams: 10/09/21 14:36 10/09/21 14:36 Labs: Laboratory Results - last 24 hr 10/09/21 14:36: Diff Path Review Reviewed Physical Exam Const alert and no apparent distress HEENT head/scalp atraumatic and moist oral mucous membranes Eyes PERRL Resp normal respiratory effort and no retractions Resp Narrative: Diminished Cardio regular rate, regular rhythm, S1 normal heart sound and S2 normal heart sound GI normal to inspection, nondistended, normoactive bowel sounds Back/Spine no CVA tenderness Thoracic Spine / Upper Back: paraspinal muscle tenderness Lumbar Spine / Lower Back: paraspinal muscle tenderness Neuro Sensorium / Orientation: awake and alert Psych affect normal Assessment & Plan Assessment/Plan (1) Rib fracture: QUALIFIERS: Encounter type: initial encounter Rib fracture type: multiple ribs Fracture type: closed Laterality: bilateral Qualified Code(s): S22.43XA - Multiple fractures of ribs, bilateral, initial encounter for closed fracture PLAN: Patient has acute fractures of the right second through seventh rib and left second through fifth ribs. Patient advised that there is no surgical options. Pain control has helped but has not been efficient enough to help him be more functional. Plan is to change his medications around. MS Contin will be discontinued and patient will be started on as needed oxycodone, scheduled acetaminophen, Lidoderm patch, continue with ibuprofen. Patient advised that his rib fractures are going to take weeks to be asymptomatic though I would expect him to continue to feel better in the short- term. Patient will need to remain off work at least until the following Friday (2) Strain of thoracic paraspinal muscles excluding T1 and T2 levels: QUALIFIERS: Encounter type: initial encounter Qualified Code(s): S29.012A - Strain of muscle and tendon of back wall of thorax, initial encounter PLAN: Also secondary to fall which seem to give the patient significant discomfort Add cyclobenzaprine PLAN: Plan Patient still with significant pain and had difficulty getting out of bed today. We will have physical therapy reevaluate him and order for wheeled walker. Plan is hopefully the patient can be discharged home. Patient does not interested in a long term facility.
--- NOTE | 2021-10-11 10:43 | DCINST_ITS ---
Discharge Instructions Diet Discharge Diet: No restrictions Activity Discharge Activity: Return to Normal Activity (slowly ease back into a normal routine.) and Use Walker Return to work on:: 10/15/21 Follow Up Care Test Results: Test results from this visit will be discussed in further detail at your follow- up appointment, if applicable. Discharge Plan Admission Admit Date/Time: 10/09/21 17:48 Primary Reason for Your Visit: Rib fractures. Attending Provider: Rafi Shaikh Primary Care Provider: Keshawn Zarate Consulting Providers: Keshawn Neil Discharge Orders/Prescriptions Prescriptions: New acetaminophen 500 mg Tablet 1,000 mg PO Q8 Qty: 0 0RF cyclobenzaprine 10 mg Tablet 10 mg PO TID PRN (Reason: muscle spasm) Qty: 30 0RF oxycodone 5 mg Tablet 5 mg PO Q6H PRN (Reason: pain) 3 Days Qty: 12 0RF ibuprofen 600 mg tablet 600 mg PO Q6H PRN (Reason: pain) Qty: 30 0RF omeprazole 20 mg tablet,delayed release (DR/EC) 20 mg PO DAILY Qty: 30 0RF lidocaine 4 % adhesive patch,medicated 1 patch topical DAILY PRN (Reason: pain) Qty: 10 0RF Rx Instructions: to low back Continued amlodipine 10 mg tablet 10 mg PO DAILY lisinopril-hydrochlorothiazide 10-12.5 mg tablet 1 tab PO DAILY Referrals / Follow Up: Keshawn Zarate DO [Primary Care Provider] - Within 1 Week Disposition Disposition (needs filled in before D/C Order can be placed): Home, Self Care
--- NOTE | 2021-10-11 11:08 | DS.PCM_ITS ---
Providers Date of Admission: 10/09/21 Primary Care Physician: Dr. Keshawn Zarate, DO Reason For Visit: MULTIPLE RIB FRACTURES, UNCONTROLLED PAIN Diagnosis Discharge Diagnosis (1) Rib fracture: Status: Acute Code(s): S22.39XA - Fracture of one rib, unspecified side, initial encounter for closed fracture Qualifiers: Encounter type: initial encounter Rib fracture type: multiple ribs Fracture type: closed Laterality: bilateral Qualified Code(s): S22.43XA - Multiple fractures of ribs, bilateral, initial encounter for closed fracture Plan: Patient has acute fractures of the right second through seventh rib and left sec ond through fifth ribs. Patient advised that there is no surgical options. Pain control has helped but has not been efficient enough to help him be more functional. Plan is to change his medications around. MS Contin will be discontinued and patient will be started on as needed oxycodone, scheduled acetaminophen, Lidoderm patch, continue with ibuprofen. Patient advised that his rib fractures are going to take weeks to be asymptomatic though I would expect him to continue to feel better in the short- term. Patient will need to remain off work at least until the following Friday (2) Strain of thoracic paraspinal muscles excluding T1 and T2 levels: Status: Acute Code(s): S29.012A - Strain of muscle and tendon of back wall of thorax, initial encounter Qualifiers: Encounter type: initial encounter Qualified Code(s): S29.012A - Strain of muscle and tendon of back wall of thorax, initial encounter Plan: Also secondary to fall which seem to give the patient significant discomfort Add cyclobenzaprine Plan Patient still with significant pain and had difficulty getting out of bed today. We will have physical therapy reevaluate him and order for wheeled walker. Plan is hopefully the patient can be discharged home. Patient does not interested in a penitentiary facility. Medications at Discharge Home Medications amlodipine 10 mg tablet 10 mg PO DAILY heart 10/09/21 lisinopril 10 mg-hydrochlorothiazide 12.5 mg tablet 1 tab PO DAILY bp 10/09/21 acetaminophen 500 mg tablet 1,000 mg PO Q8 #0 tabs 10/11/21 cyclobenzaprine 10 mg tablet 10 mg PO TID PRN muscle spasm #30 tabs 10/11/21 ibuprofen 600 mg tablet 600 mg PO Q6H PRN pain #30 tabs 10/11/21 lidocaine 4 % topical patch 1 patch topical DAILY PRN pain #10 ea 10/11/21 omeprazole 20 mg tablet,delayed release 20 mg PO DAILY #30 tabs 10/11/21 oxycodone 5 mg tablet 5 mg PO Q6H PRN pain 3 days #12 tabs 10/11/21 Hospital Course Operations None Procedures None Summary of Care Provided Minutes Spent on Discharge: 32 Weight / BMI Weight Weight: 122.036 kg Body Mass Index (BMI) 37.5 ABG / Lab / Microbiology Data Result Diagrams: 10/09/21 14:36 10/09/21 14:36 Laboratory: Laboratory Results - last 24 hr 10/09/21 14:36: Diff Path Review Reviewed D/C Instructions Discharge Diet: No restrictions Return to work on: 10/15/21 Meaningful Use Info Meaningful Use Diagnoses (Choose all that apply): None applicable Discharge Plan Admission Admit Date/Time: 10/09/21 17:48 Primary Reason for Your Visit: Rib fractures. Attending Provider: Rafi Shaikh Primary Care Provider: Keshawn Zarate Consulting Providers: Keshawn Neil Discharge Orders/Prescriptions Prescriptions: New acetaminophen 500 mg Tablet 1,000 mg PO Q8 Qty: 0 0RF cyclobenzaprine 10 mg Tablet 10 mg PO TID PRN (Reason: muscle spasm) Qty: 30 0RF oxycodone 5 mg Tablet 5 mg PO Q6H PRN (Reason: pain) 3 Days Qty: 12 0RF ibuprofen 600 mg tablet 600 mg PO Q6H PRN (Reason: pain) Qty: 30 0RF omeprazole 20 mg tablet,delayed release (DR/EC) 20 mg PO DAILY Qty: 30 0RF lidocaine 4 % adhesive patch,medicated 1 patch topical DAILY PRN (Reason: pain) Qty: 10 0RF Rx Instructions: to low back Continued amlodipine 10 mg tablet 10 mg PO DAILY lisinopril-hydrochlorothiazide 10-12.5 mg tablet 1 tab PO DAILY Referrals / Follow Up: Keshawn Zarate DO [Primary Care Provider] - Within 1 Week Disposition Disposition (needs filled in before D/C Order can be placed): Home, Self Care Charges/Coding Visit Charges OBSV E&M: 74697 Observation care discharge
[2021-10-11 14:31] VITALS: BP 117/69; PULSE 76; RESP 18; TEMP 36.5; O2SAT 98
== END 2021-10-11 16:37 | disposition home or self-care (01) ==
LOC: ED 15:29 → MS3 18:07
PROVIDERS: Admitting Provider Internal Medicine; Emergency Provider Emergency Medicine; PCP Family Medicine
DX: S22.43XA Multiple fractures of ribs, bilateral, initial encounter for closed fracture (principal); S30.0XXA Contusion of lower back and pelvis, initial encounter; W10.9XXA Fall (on) (from) unspecified stairs and steps, initial encounter; Z87.891 Personal history of nicotine dependence; S00.81XA Abrasion of other part of head, initial encounter; I10 Essential (primary) hypertension; S40.012A Contusion of left shoulder, initial encounter; Z79.899 Other long term (current) drug therapy; Y93.01 Activity, walking, marching and hiking; Y92.008 Other place in unspecified non-institutional (private) residence as the place of occurrence of the external cause; G47.33 Obstructive sleep apnea (adult) (pediatric); E66.9 Obesity, unspecified; Z68.37 Body mass index [BMI] 37.0-37.9, adult
CPT/HCPCS: 70450; 70486; 71260; 72125; 73030; 74177; 80048; 85025; 85610; 85730; 90715; 93005; 96361; 96374; 96375; 96376; 97161; 97166; 97530; 99218; 99251; 99284; J7030; Q9967; A4216; G0378; G0463; J2405

== ENCOUNTER 2021-11-12 17:09 | Observation (INO) | payer OTHER, SELFPAY ==
[2021-11-12] VITALS (8 sets, daily range): BP systolic 122–150; BP diastolic 80–94; PULSE 74–135; RESP 15–20; TEMP 36.8–36.9; O2SAT 95–99; BMI 38.7; BMI 38.5
--- NOTE | 2021-11-12 17:58 | EKG12_ITS ---
Test Reason : DYSRHYTHMIA Blood Pressure : / mmHG Vent. Rate : 117 BPM Atrial Rate : 117 BPM P-R Int : 138 ms QRS Dur : 082 ms QT Int : 304 ms P-R-T Axes : 036 005 014 degrees QTc Int : 424 ms Sinus tachycardia Otherwise normal ECG Confirmed by OLGA INMAN, MARIE ([id number]), editor news ISRRAEL QUESADA ([id number]) on 11/14/2021 9:24:20 AM Referred By: ALFONZO Confirmed By:MARIE ESPINOZA MD
--- NOTE | 2021-11-12 17:59 | ED.VIS.DYS ---
HPI History of Present Illness Chief Complaint: Shortness of Breath Detail of Chief Complaint: 2 to 3-day history. Informant: patient Onset/Context/Timing Onset: Days Context: gradual Timing: Continuous Quality: Positive for Dyspnea on exertion Current Severity: Mild Maximum Severity: Moderate Worsened by: Exertion Relieved by: Rest Associated Symptoms cough Chest Pain: Positive for None Narrative Narrative: 51-year-old male history of hypertension. About a month ago he did fall he reportedly broke 10 ribs 6 on the right and 4 on the left. Did not have a pneumo or hemothorax at that time. States that last 2-3+ days has had shortness of breath primarily with exertion. Denies any prior history. Said he was seen in urgent care earlier today and had a chest x-ray. He showed me a picture of it on his phone which shows a left pleural effusion. States he has a mild cough is felt a little achy. He denies any nausea, vomiting, diarrhea or fever. No chills. No hemoptysis. No weight loss. He is never had a DVT or PE. No leg pain or swelling. PE Risk Factors: Negative for Cancer, OCP + Smoking + > 35, Prior DVT or PE, Recent immobilization, Recent surgery or Recent travel Prior similar symptoms: No Recent Illness/Hospitalization: No PFSH PFSH Medical History Fracture of greater tuberosity of left humerus HTN (hypertension) Left rotator cuff tear Home Medications amlodipine 10 mg tablet 10 mg PO DAILY heart 10/09/21 [History Last Taken 11/12/21] lisinopril 10 mg-hydrochlorothiazide 12.5 mg tablet 1 tab PO DAILY bp 10/09/21 [History Last Taken 11/12/21] ibuprofen 200 mg tablet 800 mg PO Q6H PRN swelling 11/12/21 [History Last Taken 11/12/21] lansoprazole 15 mg capsule,delayed release 15 mg PO DAILY 11/12/21 [History Last Taken 11/12/21] loratadine 10 mg tablet 10 mg PO DAILY allergies 11/12/21 [History Last Taken 11/12/21] multivitamin 1 tab PO DAILY 11/12/21 [History Last Taken 11/12/21] Allergy/AdvReac Type Severity Reaction Status Date / Time No Known Allergies Allergy Verified 11/12/21 17:12 Family History Father Cancer Prostate Mother Cancer History of breast cancer Social History household members: spouse Smoking Status: Former smoker Smokeless tobacco user: snuff alcohol intake: current alcohol intake frequency: a few times a week substance use type: does not use ROS ROS ED ROS Narrative Shortness of breath. Review of Systems ROS Unobtainable: Denies due to encephalopathy Constitutional Constitutional ED: Denies chills or fever(s) Eyes Eyes: Denies blurry vision ENT ENT ED: Denies ear pain Cardiovascular Cardiovascular: Denies chest pain Respiratory/Chest Respiratory/Chest: Reports dyspnea and dyspnea on exertion; Denies cough Gastrointestinal Gastrointestinal: Denies abdominal pain Genitourinary Genitourinary ED: Denies dysuria Musculoskeletal Musculoskeletal: Denies arthralgias Integumentary Denies abscess Neurologic Neurologic: Denies headache(s) Psychiatric Psychiatric: Denies anxiety Endocrine Endocrinology: Denies cold intolerance Hematologic/Lymphatic Hematologic/Lymphatic: Denies easy bleeding Allergic/Immunologic Allergic/Immunologic ED: Denies mouth swelling or tongue swelling EXAM Physical Exam Narrative Exam Narrative: 49-year-old male vital signs stable except he is tachycardic at 135. Pulse ox 95% on room air no signs hypoxia. Sitting in bed he has no oxygen on he is in no respiratory distress. H EENT exam unremarkable. Neck nontender no JVD no lymphadenopathy. Lungs clear to auscultation on the right diminished in the left base. Heart tachycardic rate about 130 no murmur. Chest were nontender. Abdomen soft nontender. Moving all 4 extremities. Calves are nontender without edema or cords. He has decreased range of motion of the left shoulder is currently being worked up for possible rotator cuff tear. Neurologically is awake and alert. Answering questions following commands. Const Vital Signs: 11/12/21 17:10 11/12/21 17:35 11/12/21 17:35 Temperature 98.4 F 98.4 F Temperature Source Temporal Temporal Pulse Rate 135 H 128 H Respiratory Rate 20 H 20 H Respiratory Effort Short of Breath Labored Respiratory Depth Normal Respiratory Pattern Normal Blood Pressure 125/94 H 125/94 H Blood Pressure Mean 104 104 Pulse Ox 95 98 Oxygen Delivery Method Room Air Room Air Room Air 11/12/21 18:10 11/12/21 20:02 11/12/21 20:02 Temperature 98.3 F Temperature Source Temporal Pulse Rate 74 Respiratory Rate 15 Respiratory Effort Respiratory Depth Respiratory Pattern Blood Pressure 150/80 H Blood Pressure Mean 103 Pulse Ox 98 99 95 Oxygen Delivery Method Room Air Room Air Room Air Positive well nourished, well developed and obese; Negative for cachectic, contractures or unkempt General Appearance ED: well developed and NAD; Negative for unkempt, cachectic, contractures or pallor Nutritional Appearance: obese; Negative for cachectic HEENT Reports moist mucous membranes; Denies dry mucous membranes atraumatic; Negative for trauma or tenderness Mouth ED: No dry mucous membranes Mouth: No dry mucous membranes Eyes PERRL and EOMs intact bilaterally General Eye ED: Negative for pale conjunctiva or scleral icterus Neck no lymphadenopathy, supple, no meningeal signs and no JVD General: Negative for tenderness Lymph Lymphatic: Negative for other Chest Wall Chest: Negative for other Resp normal respiratory effort and No clear to auscultation bilaterally Resp Narrative: Diminished left base. Effort and Inspection: Negative for pain with movement Auscultation: diminished lung sounds; Negative for rales, rhonchi or wheezes Cardio regular rhythm, S1 normal heart sound and no murmurs; Negative for regular rate Rate: tachycardic GI non-tender, non-distended and no masses Auscultation: normoactive bowel sounds Palpation: soft; Negative for tender or guarding Back/Spine no CVA tenderness and normal to inspection General Back: Negative for CVA tenderness or tenderness Extremity normal to inspection General Extremety ED: Negative for edema or tenderness General Extremity: Negative for edema Neuro oriented x3 and CN's II-XII intact bilaterally Sensorium / Orientation: alert, oriented to person, oriented to place and oriented to time; Negative for orientation impaired, confused, lethargic or stuporous Speech: speech normal Motor Exam: strength 5/5 throughout Psych mental status grossly normal Appearance: Negative for unkempt Attitude: No agitated Mood & Affect: Negative for depressed or anxious Thought Process: normal thought process Skin no wounds and No skin turgor normal General Skin Exam: Negative for jaundice or pallor Lesions: no lesions Rashes: no rashes Trauma: Negative for abrasion or laceration MDM MDM MDM Narrative Medical decision making narrative: 49-year-old male fell about a month ago multiple rib fractures. Presents today with 3+ day history of shortness of breath primarily with exertion. His chest x-ray from the urgent care that he showed me a picture of on his phone looks like a moderate left pleural effusion. Labs EKG and chest x-ray were oh to be obtained. This could be a hemothorax from his prior rib fractures versus a pleural effusion versus other etiologies. Repeat exam at 8:15 PM doing well. He does have a resting tachycardia. He is in no distress. He and I went over all his test and his chest x-ray. Will be admitted for a symptomatic left pleural effusion of uncertain etiology. This could be from his recent broken ribs such as a hemothorax versus inflammatory pleural effusion versus other causes. He has not had symptoms like a pneumonia think that is the cause. I will speak to the hospitalist about admission. Lab Data Attestation: I reviewed the patient's lab results. Lab results narrative: CBC shows a white count 10.9. H&H of 15.1 and 44. Platelets 256. Electrolytes unremarkable gap of 7 normal BUN and creatinine. Glucose 114. Troponin less than 3. Labs: Laboratory Results - last 24 hr 11/12/21 11/12/21 17:45 17:45 WBC 10.9 RBC 5.08 Hgb 15.1 Hct 44.4 MCV 87.4 MCH 29.7 MCHC 34.0 RDW Std Deviation 38.1 RDW Coeff of Marissa 11.9 Plt Count 256 MPV 9.4 Immature Gran % (Auto) 0.400 Neut % (Auto) 72.8 H Lymph % (Auto) 13.9 L [place] % (Auto) 10.8 H Eos % (Auto) 1.7 Baso % (Auto) 0.4 Absolute Neuts (auto) 7.9 H Absolute Lymphs (auto) 1.51 Nucleated RBC % 0 Sodium 137 Potassium 3.5 Chloride 103 Carbon Dioxide 27.0 Anion Gap 7 BUN 9 Creatinine 0.72 Estim Creat Clear Calc 127.82 Est GFR (MDRD) Af Amer 147 Est GFR (MDRD) Non-Af 122 BUN/Creatinine Ratio 12.5 Glucose 114 H Calcium 9.6 Troponin I High Sens < 3 L Radiography Chest X-Ray - ED: 1 View, Read by ED Physician, Heart, Mediastinum, Bony Structures, No Acute Disease and Left Effusion Diagnostic Testing: Clinical Impression(s) from Imaging Studies Chest X-Ray 11/12/21 18:35 IMPRESSION: Moderate left pleural effusion. Underlying atelectasis and/or pneumonia is not excluded. Electronically Signed: Carmella Hsu MD at 19:07 EDT , Chest x-ray shows a moderate sized left pleural effusion. Portable, single view interpreted both by myself and radiologist. Rhythm Strip Rhythm Strip: Sinus Tach Rate: 117 Ectopy: None EKG Initial EKG: Attestation: I personally reviewed and interpreted this EKG as follows: Interpretation: Sinus Rhythm, No Acute Injury Pattern and Sinus Tachycardia Comments: Sinus tachycardia rate of 117 no acute signs of ME or ischemia. Discharge Plan Triage Chief Complaint: Shortness of Breath ED Provider: Gallo Loza Dx/Rx/DC Orders Clinical Impression: Acute dyspnea, Pleural effusion on left, History of fracture of rib Prescriptions: No Action amlodipine 10 mg tablet 10 mg PO DAILY lisinopril-hydrochlorothiazide 10-12.5 mg tablet 1 tab PO DAILY multivitamin Tablet 1 tab PO DAILY lansoprazole 15 mg Capsule,Delayed Release(Dr/Ec) 15 mg PO DAILY ibuprofen 200 mg Tablet 800 mg PO Q6H PRN (Reason: swelling) loratadine 10 mg Tablet 10 mg PO DAILY Primary Care Provider: Keshawn Zarate Referrals: Keshawn Zarate DO [Primary Care Provider] - Disposition Disposition: Acute Care Hospital [facility]
[2021-11-12 18:12] LABS: Absolute Lymphocyte Count 1.51 X10^3/uL (0.83-4.51); Absolute Neutrophil Count 7.9 X10^3/uL (2.0-7.7); Basophil# 0.04 X10^3/uL; Basophil% 0.4 % (0-1); Eosinophil# 0.19 X10^3/uL; Eosinophils% 1.7 % (0-5); Hematocrit 44.4 % (40-54); Hemoglobin 15.1 g/dL (13.0-16.5); Lymphocyte # 1.51 X10^3/ul (0.83-4.51); Lymphocyte % 13.9 % (19-41); Mean Corpuscular Hgb 29.7 pg (27.0-32.0); Mean Corpuscular Volume 87.4 fL (80-94); Mean Platelet Vol. 9.4 fl (6.2-12.0); Monocyte# 1.18 X10^3/uL; Monocyte% 10.8 % (0-10); NRBC Flagged by Analyzer 0 % (0-5); Neutrophil # 7.92 X10^3/uL (2.7-7.7); Neutrophil % 72.8 % (47-70); Platelet Count 256 K/mm3 (150-450); RBC Distribution Width CV 11.9 % (11.6-14.6); RBC Distribution Width SD 38.1 fl (35.1-43.9); Red Blood Count 5.08 M/mm3 (4.6-6.2); White Blood Count 10.9 K/mm3 (4.4-11.0)
[2021-11-12 18:27] LABS: Anion Gap 7 (5-15); BUN 9 mg/dL (7-18); BUN/Creat Ratio 12.5 RATIO (10-20); Calcium,Total 9.6 mg/dL (8.5-10.1); Chloride 103 mmol/L (98-107); Creatinine, Serum 0.72 mg/dL (0.70-1.30); EST Glomerular Filtration Rate 122 mL/min (>60); Est Glom Filt Rate - Afr Amer 147 mL/min (>60); Estimated Creatinine Clearance 127.82 ml/min; Glucose 114 mg/dL (74-106); Potassium 3.5 mmol/L (3.5-5.1); Sodium Level 137 mmol/L (136-145); Troponin-I HS (w/2H Reflex) < 3 pg/mL (3.0-78.0)
--- NOTE | 2021-11-12 18:35 | RAD_ITS ---
STUDY: X-RAY CHEST REASON FOR EXAM: Male, 51 years old. chest pain TECHNIQUE: Single AP portable view of the chest. COMPARISON: CT chest 10/09/2021. FINDINGS: Moderate left pleural effusion. Normal size heart. Normal mediastinum and nando. Normal visualized pulmonary arteries. Normal visualized aortic arch and descending thoracic aorta. Normal visualized thoracic spine. Normal visualized ribs, clavicles, and shoulders. There is no demonstrated abnormality of the visualized soft tissue structures of the upper abdomen. RAD/Chest 1 View (Portable) IMPRESSION: Moderate left pleural effusion. Underlying atelectasis and/or pneumonia is not excluded. Electronically Signed: Carmella Hsu MD at 19:07 EDT Reading Location ID and State: [id number] / Tel , Service support ,
[2021-11-12 20:09] LABS: Reflex Troponin-HS? (from REC) Y
--- NOTE | 2021-11-12 20:20 | ED.RN ---
Per Dr Loza, we do not need to draw the second troponin
--- NOTE | 2021-11-12 20:32 | CT_ITS ---
EXAM: CT ANGIOGRAPHY CHEST WITHOUT AND WITH INTRAVENOUS CONTRAST CLINICAL INDICATION: left pleural effusion. Tachycardia TECHNIQUE: Helically acquired angiography images were obtained of the chest without and with intravenous contrast. This CT exam was performed using one or more of the following dose reduction techniques: automated exposure control, adjustment of the mA and/or kV according to patient size, and/or use of iterative reconstruction technique. This report was created using [employer] report generation technology. MIP reconstructed images were created and reviewed. CONTRAST: IV 100mL [id number] COMPARISON: 10/09/2021, x-ray left shoulder 11/08/2021. FINDINGS: PULMONARY ARTERIES: Unremarkable. Normal in caliber. No evidence of pulmonary embolism. AORTA: Unremarkable. Normal in caliber. No evidence of dissection. GREAT VESSELS OF AORTIC ARCH: Unremarkable. Normal in caliber. No evidence of dissection. LUNGS AND PLEURAL SPACES: Moderate left pleural effusion with compressive atelectasis. Loculated effusion superiorly. No demonstrated mass or consolidation. No pneumothorax. HEART: Unremarkable. Heart size is normal. No pericardial effusion. No signs of right heart strain, ratio of right ventricle to left ventricle measures less than 1. MEDIASTINUM: Unremarkable. No mediastinal or hilar adenopathy. Esophagus is unremarkable. No hiatal hernia. THYROID: Unremarkable. No thyroid lesions. BONES/JOINTS: Subacute, bilateral healing rib fractures. Calcification adjacent to the left humeral head is better demonstrated by plain film. No suspicious lytic or blastic abnormality. CT/CTA Chest W/WO Contrast IMPRESSION: 1. Moderate left pleural effusion, including loculated effusion superiorly. 2. Healing bilateral rib fractures. Electronically Signed: Carmella Hsu MD at 22:59 EDT Reading Location ID and State: [id number] / Tel , Service support ,
--- NOTE | 2021-11-12 20:35 | PCM.HP.STD ---
[facility] - General General Date of Admission: 11/12/21 Date of Service: 11/12/21 Chief Complaint: Shortness of breath HPI Narrative PRAKASH JIMENEZ, is a 51 M who presents to the emergency room with chief complaint of shortness of breath. Patient has a significant past medical history of falling down his house stairs 1 month ago suffering fractures of 6 ribs on the right 4 ribs on the left and had a work-up at that time and had no pleural effusion. Today he states he has had progressive shortness of breath over the past 3 days. Chest x-ray reveals a moderate size left pleural effusion. Heart rate remains tachycardic and he does complain of a particular area of point tenderness in his left anterior chest that he states is new. Patient continues to have a pulse ox of 98% on room air with respiratory rate of 16 however remains in tachycardia with a rate of 120. In speaking with the ER physician a CT angiogram of chest was ordered prior to his arrival in the progressive care unit. [facility] Medical History Fracture of greater tuberosity of left humerus HTN (hypertension) Left rotator cuff tear Home Medications amlodipine 10 mg tablet 10 mg PO DAILY heart 10/09/21 [History Last Taken 11/12/21] lisinopril 10 mg-hydrochlorothiazide 12.5 mg tablet 1 tab PO DAILY bp 10/09/21 [History Last Taken 11/12/21] ibuprofen 200 mg tablet 800 mg PO Q6H PRN swelling 11/12/21 [History Last Taken 11/12/21] lansoprazole 15 mg capsule,delayed release 15 mg PO DAILY 11/12/21 [History Last Taken 11/12/21] loratadine 10 mg tablet 10 mg PO DAILY allergies 11/12/21 [History Last Taken 11/12/21] multivitamin 1 tab PO DAILY 11/12/21 [History Last Taken 11/12/21] Allergy/AdvReac Type Severity Reaction Status Date / Time No Known Allergies Allergy Verified 11/12/21 17:12 Family History Father Cancer Prostate Mother Cancer History of breast cancer Social History household members: spouse Smoking Status: Former smoker Smokeless tobacco user: snuff alcohol intake: current alcohol intake frequency: a few times a week substance use type: does not use ROS Constitutional Constitutional: Denies chills, fatigue or fever(s) Eyes Eyes: Denies change in vision ENT HEENT: Denies abnormal hearing Cardiovascular Cardiovascular: Reports chest pain Respiratory/Chest Respiratory/Chest: Reports shortness of breath at rest; Denies wheezing Gastrointestinal Gastrointestinal: Denies abdominal pain Genitourinary Genitourinary: Denies dysuria Musculoskeletal Musculoskeletal: Denies back pain Integumentary Integumentary: Denies jaundice Neurologic Neurologic: Denies abnormal speech Psychiatric Psychiatric: Denies anxiety Vital Signs Vital Signs Vital Signs: 11/12/21 17:10 11/12/21 17:35 11/12/21 17:35 Temperature 98.4 F 98.4 F Temperature Source Temporal Temporal Pulse Rate 135 H 128 H Respiratory Rate 20 H 20 H Respiratory Effort Short of Breath Labored Respiratory Depth Normal Respiratory Pattern Normal Blood Pressure 125/94 H 125/94 H Blood Pressure Mean 104 104 Pulse Ox 95 98 Oxygen Delivery Method Room Air Room Air Room Air 11/12/21 18:10 11/12/21 20:02 11/12/21 20:02 Temperature 98.3 F Temperature Source Temporal Pulse Rate 74 Respiratory Rate 15 Respiratory Effort Respiratory Depth Respiratory Pattern Blood Pressure 150/80 H Blood Pressure Mean 103 Pulse Ox 98 99 95 Oxygen Delivery Method Room Air Room Air Room Air Weight Weight: 278 lb Body Mass Index (BMI) 38.7 Physical Exam Const oriented x3 General Appearance: cooperative and well developed HEENT normocephalic and head/scalp atraumatic Eyes PERRL Neck no lymphadenopathy General: trachea midline Lymph Lymphatic: no lymphadenopathy noted Resp normal respiratory effort Effort and Inspection: Negative for respiratory distress Auscultation: diminished lung sounds left Cardio S1 normal heart sound, S2 normal heart sound and no murmurs Rate: tachycardic GI non-tender and non-distended Extremity normal capillary refill General Extremity: Negative for edema Skin General Skin Exam: Negative for no breakdown Neuro CN's II-XII intact bilaterally Psych thought process normal, cooperative and affect normal Appearance: appropriate Results Lab / Micro Data Result Diagrams: 11/12/21 17:45 11/12/21 17:45 Labs: Laboratory Results - last 24 hr 11/12/21 17:45: WBC 10.9, RBC 5.08, Hgb 15.1, Hct 44.4, MCV 87.4, MCH 29.7, MCHC 34.0, RDW Std Deviation 38.1, RDW Coeff of Marissa 11.9, Plt Count 256, MPV 9.4, Immature Gran % (Auto) 0.400, Neut % (Auto) 72.8 H, Lymph % (Auto) 13.9 L, [place] % (Auto) 10.8 H, Eos % (Auto) 1.7, Baso % (Auto) 0.4, Absolute Neuts (auto) 7.9 H, Absolute Lymphs (auto) 1.51, Nucleated RBC % 0 11/12/21 17:45: Sodium 137, Potassium 3.5, Chloride 103, Carbon Dioxide 27.0, Anion Gap 7, BUN 9, Creatinine 0.72, Estim Creat Clear Calc 127.82, Est GFR (MDRD) Af Amer 147, Est GFR (MDRD) Non-Af 122, BUN/Creatinine Ratio 12.5, Glucose 114 H, Calcium 9.6, Troponin I High Sens < 3 L Rhythm Strip Rhythm Strip: Sinus Tach Rate: 117 Ectopy: None Radiology Impression Chest X-Ray 11/12/21 18:35 IMPRESSION: Moderate left pleural effusion. Underlying atelectasis and/or pneumonia is not excluded. Electronically Signed: Carmella Hsu MD at 19:07 EDT Reading Location ID and State: [id number] / Tel , Service support , Assessment & Plan Assessment/Plan (1) Acute dyspnea: (2) Pleural effusion on left: (3) History of fracture of rib: PLAN: Plan 1 acute dyspnea/history of fractured ribs and new pleural effusion on left side?admit patient to progressive care unit, consult radiology for thoracentesis in a.m. Aspirate to be submitted to pathology. CBC BMP/INR PT PTT prior to procedure. CT angiogram chest pending at time of admission. We will add oxygen if necessary. 2. DVT prophylaxis we will use SCDs due to anticipated procedure tomorrow, if CT angiogram of chest shows a PE then we will change course with anticoagulation. Charges/Coding Visit Charges Inpatient E&M: 00792 Init Hosp L3
[2021-11-12] MEDS: DiphenhydrAMINE 50 MG/ML Syringe 25 MG IV (23:28)
[2021-11-12 23:33] LABS: Troponin-I HS 3 pg/mL (3.0-78.0)
[2021-11-12] MEDS: 0.9% Saline Lock 10 ML Syringe IV (23:34)
[2021-11-13] VITALS (13 sets, daily range): BP systolic 112–145; BP diastolic 68–80; PULSE 101–135; RESP 18–20; TEMP 36.6–37.2; O2SAT 94–98
--- NOTE | 2021-11-13 | IMM_PTH ---
PATIENT: PRAKASH JIMENEZ LOC: [facility] U#:[id number] AGE/SX: 51/M ROOM: [facility] RE11/12/[address]: Dr. Judith Grider MD : 1970 BED: 1 DIS: 11/14/2021 SPEC #: [id number] RECD: 11/15/21 11:36 STATUS: SOUDolly REQ #: [id number] CHELSEY: 11/13/21 00:[address]: Judith Grider DEPT: IMMUNOHISTOCHEMISTRY RECD BY: Ban Francisco ENTERED: 11/15/21 11:37 SP TYPE: IMMUNO OTHR DR: MD Dr. Lucina Espinal DO Dr. Mark Stutzman, DO Dr. Paul Nielsen, MD Tissues: THORACIC FLUID Procedures: Louie Ret (add) CD20 (add) CD3 (add) CD45 (add) CD5 (add) CD79A (add) MACRO (add) P53 (add) Vimentin (add) Pankeratin (initial) PHYSICIAN & INSTITUTION [address] [address] SPECIMEN INFORMATION: Tissue Source: Thoracentesis fluid Clinical Info: Left pleural effusion Specimen Number: [id number] CPT code: 80648, 39274 x9 METHODOLOGY: Deparaffinized sections of prefer/formalin-fixed tissue or PAP/DQ stained slides are incubated with monoclonal/polyclonal antibodies/oligonucleotide probes. Localization is made via biotin free immunoperoxidase method. Appropriate controls are performed and reacted as expected. Results on target cell population are indicated in the following table: RESULTS: ANTIBODY / CLONE RESULT AE1-3 (AE1/AE3/PCK26) negative CD3 (PS1) positive CD5 (SP10) positive CD20 (L26) positive CD45 (RP2/18) positive CD79a (11E3) positive Vimentin (V9) positive Macro (HAM-56) positive CALRET (polyclonal) negative P53 (DO-7) negative These tests were developed and their performance characteristics determined by [facility]. They may not have been cleared or approved by the U.S. Food and Drug Administration. The FDA has determined that such clearance or approval is not necessary. The above immunohistochemical/dualISH markers are ordered and reviewed by the Pathologist. INTERPRETATION: Thoracentesis fluid (cell block): Polytypic (benign) lymphocytic population. AM:dee 11/16/2021
[2021-11-13 01:27] LABS: Troponin-I HS 4 pg/mL (3.0-78.0)
[2021-11-13 04:48] LABS: Absolute Lymphocyte Count 2.08 X10^3/uL (0.83-4.51); Absolute Neutrophil Count 7.6 X10^3/uL (2.0-7.7); Basophil# 0.03 X10^3/uL; Basophil% 0.3 % (0-1); Eosinophil# 0.13 X10^3/uL; Eosinophils% 1.2 % (0-5); Hematocrit 40.3 % (40-54); Hemoglobin 13.8 g/dL (13.0-16.5); Lymphocyte # 2.08 X10^3/ul (0.83-4.51); Lymphocyte % 18.5 % (19-41); Mean Corp Hgb Conc 34.2 g/dL (32-36); Mean Corpuscular Hgb 29.6 pg (27.0-32.0); Mean Corpuscular Volume 86.5 fL (80-94); Mean Platelet Vol. 9.2 fl (6.2-12.0); Monocyte# 1.35 X10^3/uL; NRBC Flagged by Analyzer 0 % (0-5); Neutrophil % 67.6 % (47-70); Platelet Count 261 K/mm3 (150-450); RBC Distribution Width CV 11.9 % (11.6-14.6); RBC Distribution Width SD 37.4 fl (35.1-43.9); Red Blood Count 4.66 M/mm3 (4.6-6.2); White Blood Count 11.2 K/mm3 (4.4-11.0)
[2021-11-13 04:59] LABS: International Normalized Ratio 1.1; Prothrombin Time (Protime)PT. 14.2 SECONDS (11.7-14.9)
[2021-11-13 05:11] LABS: Anion Gap 10 (5-15); BUN 10 mg/dL (7-18); BUN/Creat Ratio 14.4 RATIO (10-20); Calcium,Total 9.1 mg/dL (8.5-10.1); Chloride 102 mmol/L (98-107); EST Glomerular Filtration Rate 126 mL/min (>60); Est Glom Filt Rate - Afr Amer 153 mL/min (>60); Estimated Creatinine Clearance 131.48 ml/min; Glucose 115 mg/dL (74-106); Potassium 3.7 mmol/L (3.5-5.1); Sodium Level 137 mmol/L (136-145)
[2021-11-13 05:15] LABS: Troponin-I HS 4 pg/mL (3.0-78.0)
--- NOTE | 2021-11-13 08:08 | US_ITS ---
PROCEDURE: ULTRASOUND GUIDED THORACENTESIS. DATE: 11/13/2021. INDICATION: Male, 51 years old. Left pleural effusion. PHYSICIAN: Bjorn Aquino M.D. PROCEDURE: The risks, benefits, and alternatives to the procedure were explained to the patient. The specific risks of bleeding, infection, and pneumothorax requiring chest tube insertion were discussed and accepted. Written informed consent was obtained. Ultrasonographic evaluation of the left lower pleural space was carried out. An adequate pocket was identified. The patient was placed in the sitting, upright position. The overlying skin was prepped and draped in sterile fashion. 1% lidocaine was administered subcutaneously for local anesthesia. Under ultrasound guidance, a 5 Vietnamese thoracentesis needle/catheter system was advanced into the left posterior lower pleural fluid collection. Approximately 1250 mL of blood tinged fluid was drained. The catheter was removed, and a sterile dressing was applied. A specimen was collected and sent to the laboratory for analysis, as requested by the referring clinician. The patient tolerated the procedure well. A chest x-ray was ordered. US/Thoracentesis W US IMPRESSION: Ultrasound-guided left thoracentesis. Electronically Signed: Bjorn Aquino MD at 14:32 EDT ,
[2021-11-13] MEDS: Multivitamins,Therapeutic Tablet 1 TABLET PO (10:56)
[2021-11-13] MEDS: Loratadine 10 MG Tablet PO (10:56)
[2021-11-13] MEDS: hydroCHLOROthiazide 12.5mg 12.5 MG PO (10:57)
[2021-11-13] MEDS: Pantoprazole Sodium 20 MG Tablet PO (10:57)
[2021-11-13] MEDS: Lisinopril 10 MG Tablet PO (10:57)
[2021-11-13] MEDS: amLODIPine 10 MG Tablet PO (10:57)
--- NOTE | 2021-11-13 11:30 | CASEMGMT ---
ZAHEER VARELA assessment: Face to Face with patient for initial transition planning/care coordination assessment. ZAHEER VARELA introduced self and role at [facility], pt voices understanding and consents to assessment. Pt is sitting up in chair in no distress on room air. Pt is A/Ox4 and answers all questions appropriately. Care providers, pharmacy,?and demographics verified. ? Presentation: Pt c/o SOB for several day, worse w/ exertion-had Xray and advised to come to ED d/t pna and fluid on left side Admitting dx: L pleural effusion PCP: Elliot Specialists: None Preferred Pharmacy: [facility] Insurance: [facility] Prescription Benefit:?[facility] Living Will/HPOA: Pt does not have LW/HPOA but would like AD info. AD info provided. LNOK: Jerrica Russo, Living Arrangements: Pt lives with in 1 story home with finished basement and states no concerns at home. Pt is independent with ADL's. Transportation: Pt drives self and states no transportation concerns. DME/HHC: Pt has a bipap thru [employer] and states no need for any further DME. Pt states no hx of SNF or HHC in past. Pt states no concerns with going home at time of discharge. 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 Pt states does not smoke cigarettes but does occasionally drink ETOH. Pt voices no further concerns/needs. CM to follow for any further discharge planning/needs. Advised pt to ask for CM if any further questions/concerns/needs arise, voices understanding. Pt Goal: Home Plan[place] ZAHEER VARELA
--- NOTE | 2021-11-13 12:45 | PCM.PN.HOSP ---
Subjective Subjective DOS 11/13/21 CC: Chest wall soreness Mr Russo is a 51y/o male who presented 11/12 with worsening SOB for 3 days in the setting of a fall 1 month ago with multiple rib fx. He was sent from urgent care d/t effusion on xray and was admitted for IR drainage of effusion. CTA obtained showed moderate left pleural effusion with superior loculation and rib fractures. He was wearing cpap on eval and when he removed it he reported he wasn't SOB at the time but it was too early to tell. Some cough that he endorses is not productive. Denies CP. Has some chest wall pain with deep inspiration. Denies headache or changes in vision. No swelling in extremities. Did not sleep well but was able to rest better with his cpap on. Objective Data Objective Data Vital Signs: Vital Signs Temp Pulse Resp BP Pulse Ox O2 Del Method 98.6 F 117 H 18 128/78 H 95 Room Air 11/13/21 10:40 11/13/21 10:40 11/13/21 10:40 11/13/21 10:40 11/13/21 10:40 11/13/21 10:40 Oxygen Delivery Method Room Air Weight: 125.191 kg Body Mass Index (BMI) 38.5 Lab / Micro Data Result Diagrams: 11/13/21 04:38 11/13/21 04:38 Labs: Laboratory Results - last 24 hr 11/12/21 17:45: WBC 10.9, RBC 5.08, Hgb 15.1, Hct 44.4, MCV 87.4, MCH 29.7, MCHC 34.0, RDW Std Deviation 38.1, RDW Coeff of Marissa 11.9, Plt Count 256, MPV 9.4, Immature Gran % (Auto) 0.400, Neut % (Auto) 72.8 H, Lymph % (Auto) 13.9 L, [place] % (Auto) 10.8 H, Eos % (Auto) 1.7, Baso % (Auto) 0.4, Absolute Neuts (auto) 7.9 H, Absolute Lymphs (auto) 1.51, Nucleated RBC % 0 11/12/21 17:45: Sodium 137, Potassium 3.5, Chloride 103, Carbon Dioxide 27.0, Anion Gap 7, BUN 9, Creatinine 0.72, Estim Creat Clear Calc 127.82, Est GFR (MDRD) Af Amer 147, Est GFR (MDRD) Non-Af 122, BUN/Creatinine Ratio 12.5, Glucose 114 H, Calcium 9.6, Troponin I High Sens < 3 L 11/12/21 22:55: Troponin I High Sens 3 11/13/21 01:05: Troponin I High Sens 4 11/13/21 04:38: WBC 11.2 H, RBC 4.66, Hgb 13.8, Hct 40.3, MCV 86.5, MCH 29.6, MCHC 34.2, RDW Std Deviation 37.4, RDW Coeff of Marissa 11.9, Plt Count 261, MPV 9.2, Immature Gran % (Auto) 0.400, Neut % (Auto) 67.6, Lymph % (Auto) 18.5 L, [place] % (Auto) 12.0 H, Eos % (Auto) 1.2, Baso % (Auto) 0.3, Absolute Neuts (auto) 7.6, Absolute Lymphs (auto) 2.08, Nucleated RBC % 0 11/13/21 04:38: PT 14.2, INR 1.1 11/13/21 04:38: Sodium 137, Potassium 3.7, Chloride 102, Carbon Dioxide 25.0, Anion Gap 10, BUN 10, Creatinine 0.70, Estim Creat Clear Calc 131.48, Est GFR (MDRD) Af Amer 153, Est GFR (MDRD) Non-Af 126, BUN/Creatinine Ratio 14.4, Glucose 115 H, Calcium 9.1 11/13/21 04:38: Troponin I High Sens 4 Radiography Diagnostic Testing: Radiology Impression Chest X-Ray 11/12/21 18:35 IMPRESSION: Moderate left pleural effusion. Underlying atelectasis and/or pneumonia is not excluded. Electronically Signed: Carmella Hsu MD at 19:07 EDT Reading Location ID and State: [id number] / Tel , Service support , Chest CTA 11/12/21 20:32 IMPRESSION: 1. Moderate left pleural effusion, including loculated effusion superiorly. 2. Healing bilateral rib fractures. Electronically Signed: Carmella Hsu MD at 22:59 EDT Reading Location ID and State: [id number] / Tel , Service support , Rhythm Strip Rhythm Strip: Sinus Tach Rate: 117 Ectopy: None Physical Exam Const alert and oriented x3 HEENT moist oral mucous membranes Eyes EOMs intact bilaterally Neck supple Resp Resp Narrative: R sided diffuse wheezes, OWEN wheezes with diminished breath sounds at left base Cardio regular rate and regular rhythm GI soft to palpation, non-tender and non-distended Extremity Extremity Narrative: No edema Neuro Neuro Narrative: Moving all extremities, awake and alert Psych affect normal Assessment & Plan Assessment/Plan (1) Acute dyspnea: (2) Pleural effusion on left: (3) History of fracture of rib: PLAN: Plan Shortness of breath 2/2 Left sided loculated pleural effusion in the setting of multiple rib fractures Pt admitted and IR consulted for thoracentesis this AM. Will await thora. CTA showed moderate left pleural effusion with superior loculations Pt has been intermittently tachycardic but is afebrile, BP has not been low, do not see convincing s/s of systemic infection requiring abx at this time and he has not been hypoxic but will assess closely GERD protonix ACACIA home cpap at bedside, pt using this AM HTN Home amlodipine, lisinopril, and HCTZ continued Rib fractures several fractures x1 month ago Ibuprofen prn DVT prophylaxis SCDs Time spent 28 minutes Judith Grider MD Charges/Coding Visit Charges Inpatient E&M: 36038 Subs Hosp L1
--- NOTE | 2021-11-13 13:45 | FLU_PTH ---
PATIENT: PRAKASH JIMENEZ LOC: [facility] U#:[id number] AGE/SX: 51/M ROOM: [facility] RE11/12/[address]: Dr. Judith Grider MD : 1970 BED: 1 DIS: 11/14/2021 SPEC #: [id number] RECD: 11/13/21 14:20 STATUS: GOLDIE REQ #: [id number] CHELSEY: 11/13/21 13:[address]: Judith Grider DEPT: CYTOLOGY RECD BY: aKterin Redding ENTERED: 11/14/21 07:00 SP TYPE: Fluid OTHR DR: MD Dr. Lucina Espinal DO Dr. Mark Stutzman, DO Dr. Paul Nielsen, MD Tissues: Pleural fluid, NOS Procedures: Special Stain Group II Surgery Specimen Level IV Cytospin Fluid HEADER OPERATION: Thoracentesis PRE-OP DIAGNOSIS: Left pleural effusion TISSUE SUBMITTED: Thoracentesis fluid for cytology DIAGNOSIS CYTOLOGY Thoracentesis fluid for cytology (cytospin and cell block): Negative for malignant cells. See cytology study and comment. AM:dee 11/15/2021 COMMENT Immunohistochemistry ([id number]) supports the above diagnosis. CYTOLOGY STUDY Slides are reviewed. The specimen contains polymorphous lymphocytes and reactive mesothelial cells. CYTOLOGY GROSS Received is 90 ml of cloudy edu fluid labeled with the patient's name and and designated per the requisition as thoracentesis. Submitted for cytology preparation including cell block. / dee 11/14/2021 TC:5 CPT: 76546, 95281
--- NOTE | 2021-11-13 13:48 | RAD_ITS ---
STUDY: X-RAY CHEST REASON FOR EXAM: Male, 51 years old. Post thoracentesis TECHNIQUE: AP inspiration expiration views. COMPARISON: Comparison is made with prior study dated 11/12/2021. FINDINGS: EKG electrodes are seen. Pleural parenchymal changes at the left lung base. No pneumothorax. Bilateral rib fractures. RAD/Chest Insp/Exp 2 View IMPRESSION: Status post left thoracentesis. No evidence of pneumothorax. Electronically Signed: Bjorn Aquino MD at 14:11 EDT ,
[2021-11-13 14:56] LABS: Body Fluid Mononuclear WBC # 3.099 10^3/uL; Body Fluid Mononuclear WBC % 79.5 %; Body Fluid Polynuclear WBC # 0.802 10^3/uL; Body Fluid Polynuclear WBC % 20.5 %; Body Fluid Total Cells Counted 3.923 10^3/ul; Red Cell Count/Body Fluid 0.036 10^6/ul; White Blood Count/Body Fluid 3.901 10^3/uL
[2021-11-13 14:59] LABS: Appearance/Body Fluid SL CLDY; Auto B Fluid Analyzer BKGD Ct COUNTS W/IN LIMITS (W/IN LIMITS); Body Fluid QC Type(s) BF2Q; Source- Body Fluid THORACENTESIS
[2021-11-13 15:01] LABS: Color/Body Fluid RED
[2021-11-13 15:20] LABS: Lymphocytes 25 %; Monocytes 16 %; Neutrophil (Segs) 39 %; Other Cell Type/BF 20 %
[2021-11-13 16:38] LABS: Glucose, Body Fluid 91 mg/dL (40-70); LDH,Body Fluid 335 Units/l (Not Establ.); Protein, Body Fluid 5.2 g/dL (Not Establ.)
[2021-11-13] MEDS: Ibuprofen 400 MG Tablet 800 MG PO (16:43)
[2021-11-13] MEDS: Colchicine 0.6 MG TABLET 1.2 MG PO (17:19)
[2021-11-13 17:33] LABS: LDH 155 U/L (87-241)
[2021-11-13 17:40] LABS: Procalcitonin 0.09 ng/mL (0.00-0.09)
--- NOTE | 2021-11-13 18:22 | NURSING ---
Charting reviewed with Orville Rouse RN
[2021-11-13 18:28] LABS: Uric Acid 6.2 mg/dL (3.5-7.2)
[2021-11-13] MEDS: Colchicine 0.6 MG TABLET PO (19:53)
[2021-11-13] MEDS: 0.9% Saline Lock 10 ML Syringe IV (20:09)
[2021-11-13] MEDS: metroNIDAZOLE 500 MG/100 ML BAG 100 MG IV (21:35)
[2021-11-14] MEDS: MELATONIN 3 MG TABLET PO (00:13)
[2021-11-14 03:00] VITALS: BP 119/75; PULSE 91; RESP 18; TEMP 36.1; TEMP 36.7; O2SAT 95; O2SAT 96
[2021-11-14 03:14] VITALS: PULSE 94
[2021-11-14 06:09] LABS: Absolute Neutrophil Count 6.2 X10^3/uL (2.0-7.7); Basophil# 0.03 X10^3/uL; Basophil% 0.3 % (0-1); Eosinophil# 0.26 X10^3/uL; Eosinophils% 2.8 % (0-5); Hematocrit 38.8 % (40-54); Hemoglobin 13.5 g/dL (13.0-16.5); Lymphocyte % 20.3 % (19-41); Mean Corp Hgb Conc 34.8 g/dL (32-36); Mean Corpuscular Hgb 30.4 pg (27.0-32.0); Mean Corpuscular Volume 87.4 fL (80-94); Monocyte# 0.97 X10^3/uL; Monocyte% 10.4 % (0-10); NRBC Flagged by Analyzer 0 % (0-5); Neutrophil # 6.16 X10^3/uL (2.7-7.7); Neutrophil % 65.9 % (47-70); Platelet Count 238 K/mm3 (150-450); RBC Distribution Width CV 11.9 % (11.6-14.6); RBC Distribution Width SD 38.3 fl (35.1-43.9); Red Blood Count 4.44 M/mm3 (4.6-6.2); White Blood Count 9.4 K/mm3 (4.4-11.0)
[2021-11-14 06:40] LABS: ALB/GLOB Ratio 0.7 RATIO (0.9-2.4); AST(SGOT) 5 U/L (15-37); Alanine Aminotransfer ALT/SGPT 15 U/L (16-61); Albumin, Serum 2.8 g/dL (3.2-5.0); Alkaline Phosphatase 73 U/L (45-117); Anion Gap 7 (5-15); BUN 16 mg/dL (7-18); BUN/Creat Ratio 24.4 RATIO (10-20); Calcium,Total 8.6 mg/dL (8.5-10.1); Chloride 102 mmol/L (98-107); Creatinine, Serum 0.66 mg/dL (0.70-1.30); EST Glomerular Filtration Rate 135 mL/min (>60); Est Glom Filt Rate - Afr Amer 163 mL/min (>60); Estimated Creatinine Clearance 139.44 ml/min; Globulin 4.2 g/dL (2.2-4.2); Glucose 168 mg/dL (74-106); Potassium 3.4 mmol/L (3.5-5.1); Sodium Level 136 mmol/L (136-145)
[2021-11-14 07:00] VITALS: PULSE 90
[2021-11-14] MEDS: metroNIDAZOLE 500 MG/100 ML BAG 100 MG IV ×2 (07:21→13:23)
[2021-11-14] MEDS: Potassium Chloride Oral Tablet 20 MEQ 40 MEQ PO (08:27)
[2021-11-14] MEDS: Multivitamins,Therapeutic Tablet 1 TABLET PO (08:27)
[2021-11-14 08:33] VITALS: BP 116/71; PULSE 99; RESP 16; TEMP 36.6; O2SAT 95
[2021-11-14] MEDS: hydroCHLOROthiazide 12.5mg 12.5 MG PO (09:04)
[2021-11-14] MEDS: Lisinopril 10 MG Tablet PO (09:04)
[2021-11-14] MEDS: amLODIPine 10 MG Tablet PO (09:05)
[2021-11-14] MEDS: Pantoprazole Sodium 20 MG Tablet PO (09:05)
[2021-11-14] MEDS: Loratadine 10 MG Tablet PO (09:06)
--- NOTE | 2021-11-14 09:53 | CT_ITS ---
STUDY: CT CHEST WITH CONTRAST REASON FOR EXAM: Male, 51 years old. f/u loculated effusion s/p thora RADIATION DOSAGE (If Supplied By Facility): CTDIvol = ( 20.02 ) mGy, DLP = ( 798.09 ) mGycm TECHNIQUE: Transaxial imaging was performed following intravenous administration of IV 100mL Isovue-300. Multiplanar coronal and sagittal images were reformatted. Individualized dose optimization techniques were used for this CT. COMPARISON: Comparison is made with prior study dated 11/12/2021. FINDINGS: CHEST Since prior study, the patient underwent a left-sided thoracentesis. Small residual left pleural effusion with the volume loss in the left lower lobe persists although there has been improvement. A small amount of fluid is also seen in the posterior lateral aspect of the left major fissure. The right lung is clear. There is no demonstrated pleural abnormality. Normal heart and pericardium. Normal mediastinum. Normal hilar regions. Normal unenhanced pulmonary arteries. There is mild atherosclerotic calcification of the aortic arch. There are multi-level degenerative changes of the thoracic spine. Stable bilateral rib fractures. There is no demonstrated abnormality of the visualized upper abdomen. CT/Chest WITH Contrast IMPRESSION: Status post left thoracentesis with the smaller left pleural effusion with loculation in the posterior lateral aspect of the right major fissure. Atelectasis and volume loss at the left lung base. Stable bilateral rib fractures. Electronically Signed: Bjorn Aquino MD at 10:58 EDT ,
[2021-11-14] MEDS: 0.9% Normal Saline 1,000 ML 100 ML IV (10:36)
[2021-11-14 12:51] LABS: Pathologist Comment/Body Fluid Reviewed
--- NOTE | 2021-11-14 13:21 | DS.PCM_ITS ---
Providers Date of Admission: 11/12/21 Date of Discharge: 11/14/21 Primary Care Physician: Dr. Keshawn Zarate, Consultations 11/12/21 22:12 Consult: Interventional Radiology Routine Consulting Provider: Bjorn Aquino Reason for Consult: Pleural effusion, requesting thoracentesis EMERGENT Consult: No MD Notified: Yes Date Notified: 11/13/21 Time Notified: 08:13 Method of Notification: ordered thoro Reason For Visit: LEFT PLEURAL EFFUSION, SHORTNESS OF BREATH Diagnosis Discharge Diagnosis (1) Pleural effusion on left: Status: Acute Code(s): J90 - Pleural effusion, not elsewhere classified (2) Acute dyspnea: Status: Acute Code(s): R06.00 - Dyspnea, unspecified (3) History of fracture of rib: Status: Acute Code(s): Z87.81 - Personal history of (healed) traumatic fracture Plan Shortness of breath 2/2 Left sided loculated pleural effusion in the setting of multiple rib fractures CTA showed moderate left pleural effusion with superior loculations s/p IR drainage with 1.2 L out Fluid exudative by light's criteria Repeat CT showed slight residual with loculation in posterior lateral aspect on left side Pt doing well on room air. WBC and tachycardia improved with empiric antibiotics for parapneumonic effusion Final culture pending Will d/c home in stable condition to f/u with Thoracic surgery Continue abx- augmentin for 9 more days Judith Grider MD Medications at Discharge Home Medications amlodipine 10 mg tablet 10 mg PO DAILY heart 10/09/21 lisinopril 10 mg-hydrochlorothiazide 12.5 mg tablet 1 tab PO DAILY bp 10/09/21 ibuprofen 200 mg tablet 800 mg PO Q6H PRN swelling 11/12/21 lansoprazole 15 mg capsule,delayed release 15 mg PO DAILY 11/12/21 loratadine 10 mg tablet 10 mg PO DAILY allergies 11/12/21 multivitamin 1 tab PO DAILY 11/12/21 amoxicillin 875 mg-potassium clavulanate 125 mg tablet 1 tab PO Q12H parapneumonic effusion 9 days #18 tabs 11/14/21 Hospital Course Procedures Thoracentesis and - Summary of Care Provided Hospital Course: Mr. Russo is a 51y/o male with hx of ACACIA who presented to [facility] ED 11/12/21 with increasing SOB. He had fell down the stairs in his house 1 month ago suffering fractures of 6 ribs on the right 4 ribs on the left and had a work-up at that time and had no pleural effusion. In the ED he was found to have moderate left pleural effusion on xray and was tachycardic and SOB. CTA revealed Moderate left pleural effusion, including loculated effusion superiorly. Thoracentesis preformed 11/13/21 and results indicated exudative criteria with pleural protein to serum protein 0.74, pleural LDL/serum ldh 2.16, and pleural LDH/ULN LDH 1.39. He did also develop slight wbc and was consistently tachycardic. He was started on abx for concern there could be infectious component and his tachycardia and wbc resolved and he was feeling better thereafter. He was stable with no O2 requirement and discharged on augmentin with instructions to follow up with thoracic surgery on discharge to evaluate further as repeat CT was much improved but did still have a small left pleural effusion with loculation with atelectasis and volume loss. Contact information provided for follow up. Final fluid culture pending. Pt discharged home in stable condition with instructions to return with any worsening s/s. Additionally while admitted pt reported he had had left ankle pain consistent with his gout pain with minimal tenderness but some warmth and discomfort. He gets that several times a year and is treated with colchicine with success. Colchicine given, will need outpt follow up. Judith Grider MD I personally spent >35 minutes on discharge coordination, planning, and completing. Physical Exam Const alert and oriented x3 General Appearance: cooperative HEENT normocephalic Eyes EOMs intact bilaterally Neck supple Resp normal respiratory effort Resp Narrative: decreased breath sounds at base of left lung, R side with scattered wheezing Cardio regular rate and regular rhythm GI non-distended Extremity full ROM Extremity Narrative: some swelling in left ankle, minimal tenderness Skin no rashes or lesions noted Skin Narrative: No drainage around thoracentesis site Neuro moves all extremities and no focal motor deficits Psych affect normal Weight / BMI Weight Weight: 125.191 kg Body Mass Index (BMI) 38.5 ABG / Lab / Microbiology Data Result Diagrams: 11/14/21 05:49 11/14/21 05:49 Laboratory: Laboratory Results - last 24 hr 11/13/21 13:45: Fluid Glucose 91 H, Fluid Total Protein 5.2, Fluid LDH 335 11/13/21 13:45: Fluid Source THORACENTESIS, Fluid Color RED, Fluid Appearance SL CLDY, Fluid WBC 3.901, Fluid RBC 0.036, Fluid Tot Cell Count 3.923, Fld Polynuclear WBCs # 0.802, Fld Polynuclear WBCs % 20.5, Fluid Mononuclear WBCs 3.099, Fld Mononuclear WBCs % 79.5, Fluid Neutrophils 39, Fluid Lymphocytes 25, Fluid Monocytes 16, Fluid Other Cells 20, Fl Pathologist Comment Reviewed, Fluid Comment 2 SEE COMMENT 11/13/21 16:20: Procalcitonin 0.09 11/13/21 16:20: Lactate Dehydrogenase 155 11/13/21 16:20: Uric Acid 6.2 11/14/21 05:49: WBC 9.4, RBC 4.44 L, Hgb 13.5, Hct 38.8 L, MCV 87.4, MCH 30.4, MCHC 34.8, RDW Std Deviation 38.3, RDW Coeff of Marissa 11.9, Plt Count 238, MPV 9.0, Immature Gran % (Auto) 0.300, Neut % (Auto) 65.9, Lymph % (Auto) 20.3, [place] % (Auto) 10.4 H, Eos % (Auto) 2.8, Baso % (Auto) 0.3, Absolute Neuts (auto) 6.2, Absolute Lymphs (auto) 1.90, Nucleated RBC % 0 11/14/21 05:49: Sodium 136, Potassium 3.4 L, Chloride 102, Carbon Dioxide 27.0, Anion Gap 7, BUN 16, Creatinine 0.66 L, Estim Creat Clear Calc 139.44, Est GFR (MDRD) Af Amer 163, Est GFR (MDRD) Non-Af 135, BUN/Creatinine Ratio 24.4 H, Glucose 168 H, Calcium 8.6, Total Bilirubin 0.60, AST 5 L, ALT 15 L, Alkaline Phosphatase 73, Total Protein 7.0, Albumin 2.8 L, Globulin 4.2, Albumin/Globulin Ratio 0.7 L Microbiology: Microbiology 11/13/21 13:45 Fluid - Thoracentesis Fluid Gram Stain - Final 11/13/21 13:45 Fluid - Thoracentesis Fluid Body Fluid Culture - Preliminary No growth-Final to follow Radiography Diagnostic Testing: Radiology Impression Thoracentesis Ultrasound 11/13/21 08:08 IMPRESSION: Ultrasound-guided left thoracentesis. Electronically Signed: Bjorn Aquino MD at 14:32 EDT , Chest X-Ray 11/13/21 13:48 IMPRESSION: Status post left thoracentesis. No evidence of pneumothorax. Electronically Signed: Bjorn Aquino MD at 14:11 EDT , Chest CT 11/14/21 09:53 IMPRESSION: Status post left thoracentesis with the smaller left pleural effusion with loculation in the posterior lateral aspect of the right major fissure. Atelectasis and volume loss at the left lung base. Stable bilateral rib fractures. Electronically Signed: Bjorn Aquino MD at 10:58 EDT , D/C Instructions Discharge Diet: No restrictions Discharge Activity: Return to Normal Activity (as tolerated.) Pending Tests Upon Discharge: Final culture results Meaningful Use Info Meaningful Use Diagnoses (Choose all that apply): None applicable Discharge Plan Admission Admit Date/Time: 11/12/21 20:47 Primary Reason for Your Visit: Fluid on left lung Attending Provider: Judith Grider Primary Care Provider: Keshawn Zarate Consulting Providers: Zach Radford ; Lucina Rodas ; Bjorn Aquino Instructions Patient Instructions: RAD RN Thoracentesis Dc, Eating to Prevent Gout, ED Gout, ED Pleural Effusion Additional Instructions / Restrictions: 1. You were found to have fluid on your left lung and this was drained. 2. There is concern for infection in the fluid and you have been placed on antibiotics and will be sent home on 9 additional days of augmentin, please take this three times daily. 3.Please continue deep breathing exercises 4. Please continue all other home medications as prescribed 5. It is important that you follow up with the Thoracic Surgery group in [place], [place]. Contact information has been provided for Dr. Rafi Meier. [phone]. Please call upon discharge to schedule this appointment. 6. You can contact the [facility] medical records department to obtain a copy of your CT scan for Dr. Meier's office prior to that appointment. -Please call your primary care provider's office upon discharge to schedule a hospital follow up within 1 week. -For any concerning signs or symptoms please call 911 or proceed to the nearest emergency department Discharge Orders/Prescriptions Prescriptions: New amoxicillin-pot clavulanate 875-125 mg tablet 1 tab PO Q12H 9 Days Qty: 18 0RF Continued amlodipine 10 mg tablet 10 mg PO DAILY lisinopril-hydrochlorothiazide 10-12.5 mg tablet 1 tab PO DAILY multivitamin Tablet 1 tab PO DAILY lansoprazole 15 mg Capsule,Delayed Release(Dr/Ec) 15 mg PO DAILY ibuprofen 200 mg Tablet 800 mg PO Q6H PRN (Reason: swelling) loratadine 10 mg Tablet 10 mg PO DAILY Referrals / Follow Up: Rafi Meier MD [Non-Staff] - In 1 Week (Hospital follow up for left sided pleural effusion with loculation) Keshawn Zarate DO [Primary Care Provider] - In 1 Week Disposition Disposition (needs filled in before D/C Order can be placed): Home, Self Care Charges/Coding Visit Charges Inpatient E&M: 33947 Disch Hosp
[2021-11-14 13:38] VITALS: BP 106/67; PULSE 105; RESP 16; TEMP 36.6
[2021-11-14 14:00] VITALS: BP 106/67; PULSE 105; RESP 16; TEMP 36.6; O2SAT 95
--- NOTE | 2021-11-14 14:15 | DCINST_ITS ---
Discharge Instructions Diet Discharge Diet: No restrictions Activity Discharge Activity: Return to Normal Activity Dressing / Incision Call your doctor if you observe: Fever of 101 or Higher, Shortness of breath, Dizziness, Fainting spells, Chest pain, Increased palpitations (irregular heartbeat), Calf discomfort and Uncontrolled pain Follow Up Care Test Results: Test results from this visit will be discussed in further detail at your follow- up appointment, if applicable. Pending Tests Upon Discharge: Final culture results Discharge Plan Admission Admit Date/Time: 11/12/21 20:47 Primary Reason for Your Visit: Fluid on left lung Attending Provider: Judith Grider Primary Care Provider: Keshawn Zarate Consulting Providers: Zach Radford ; Lucina Rodas ; Bjorn Aquino Instructions Patient Instructions: RAD RN Thoracentesis Dc, Eating to Prevent Gout, ED Gout, ED Pleural Effusion Additional Instructions / Restrictions: 1. You were found to have fluid on your left lung and this was drained. 2. There is concern for infection in the fluid and you have been placed on antibiotics and will be sent home on 9 additional days of augmentin, please take this three times daily. 3.Please continue deep breathing exercises 4. Please continue all other home medications as prescribed 5. It is important that you follow up with the Thoracic Surgery group in [place], [place]. Contact information has been provided for Dr. Rafi Meier. [phone]. Please call upon discharge to schedule this appointment. 6. You can contact the [facility] medical records department to obtain a copy of your CT scan for Dr. Meier's office prior to that appointment. -Please call your primary care provider's office upon discharge to schedule a hospital follow up within 1 week. -For any concerning signs or symptoms please call 911 or proceed to the nearest emergency department Discharge Orders/Prescriptions Prescriptions: New amoxicillin-pot clavulanate 875-125 mg tablet 1 tab PO Q12H 9 Days Qty: 18 0RF Continued amlodipine 10 mg tablet 10 mg PO DAILY lisinopril-hydrochlorothiazide 10-12.5 mg tablet 1 tab PO DAILY multivitamin Tablet 1 tab PO DAILY lansoprazole 15 mg Capsule,Delayed Release(Dr/Ec) 15 mg PO DAILY ibuprofen 200 mg Tablet 800 mg PO Q6H PRN (Reason: swelling) loratadine 10 mg Tablet 10 mg PO DAILY Referrals / Follow Up: Rafi Meier MD [Non-Staff] - In 1 Week (Hospital follow up for left sided pleural effusion with loculation) Keshawn Zarate DO [Primary Care Provider] - In 1 Week Disposition Disposition (needs filled in before D/C Order can be placed): Home, Self Care
--- NOTE | 2021-11-14 14:29 | PHA.DC.MC ---
Pharmacy Service has performed discharge medication reconciliation and counseling for this patient. 1. AUGMENTIN 875/125MG PO BID X 9 DAYS The patient's discharge medication list was reviewed for discrepancies and discrepancies were resolved. Home Medications amlodipine 10 mg tablet 10 mg PO DAILY heart 10/09/21 lisinopril 10 mg-hydrochlorothiazide 12.5 mg tablet 1 tab PO DAILY bp 10/09/21 ibuprofen 200 mg tablet 800 mg PO Q6H PRN swelling 11/12/21 lansoprazole 15 mg capsule,delayed release 15 mg PO DAILY 11/12/21 loratadine 10 mg tablet 10 mg PO DAILY allergies 11/12/21 multivitamin 1 tab PO DAILY 11/12/21 amoxicillin 875 mg-potassium clavulanate 125 mg tablet 1 tab PO Q12H parapneumonic effusion 9 days #18 tabs 11/14/21 The patient was counseled on the following discharge medications and changes in medications for homegoing were reviewed. The Reason for Use, instructions for use, and potential side effects were reviewed for all new medications. The patient's questions regarding all of their medications were answered. The patient was able to verbally demonstrate an understanding of their discharge medications.
--- NOTE | 2021-11-14 14:34 | NURSING ---
patient given incentive spirometer and used teach back method to establish understanding.
[2021-11-19 16:19] LABS: pH, Body Fluid 11254 7.6 (Not Estab.)
== END 2021-11-14 15:29 | disposition home or self-care (01) | DRG 188 ==
LOC: ED 20:21 → PCU 21:37
PROVIDERS: Admitting Provider Family Medicine; Emergency Provider Emergency Medicine; PCP Family Medicine; Visit Provider Internal Medicine
DX: J90 Pleural effusion, not elsewhere classified (principal); E86.9 Volume depletion, unspecified; G47.33 Obstructive sleep apnea (adult) (pediatric); I10 Essential (primary) hypertension; K21.9 Gastro-esophageal reflux disease without esophagitis; Z87.891 Personal history of nicotine dependence; R06.00 Dyspnea, unspecified; Z87.81 Personal history of (healed) traumatic fracture; Z79.899 Other long term (current) drug therapy
CPT/HCPCS: 32555; 36415; 71045; 71046; 71260; 71275; 80048; 80053; 82945; 83615; 83986; 84145; 84157; 84484; 84550; 85025; 85610; 87070; 87075; 87205; 88108; 88305; 88313; 88341; 88342; 89050; 93005; 96361; 96365; 96366; 96367; 96375; 99218; 99285; J7030; J7040; Q9967; A4216; G0378

== ENCOUNTER → 2021-11-27 | Outpatient (CLI) | payer OTHER, SELFPAY ==
--- NOTE | 2021-11-27 17:55 | MRI_ITS ---
EXAM: MR LEFT UPPER EXTREMITY WITHOUT INTRAVENOUS CONTRAST, SHOULDER CLINICAL INDICATION: GT fracture, likely cuff tear TECHNIQUE: Multiplanar and multisequence MR images of the left shoulder without intravenous contrast. This report was created using [employer] report generation technology. COMPARISON: X-ray 11/08/2021. FINDINGS: TENDONS: SUPRASPINATUS: Cortical avulsion of the greater tuberosity, with full-thickness tear of the supraspinatus tendon measuring 1.8 cm AP. INFRASPINATUS: Unremarkable. Intact. SUBSCAPULARIS: Unremarkable. Intact. TERES MINOR: Unremarkable. Intact. BICEPS BRACHII, LONG HEAD: Mild thickening and signal alteration of the intracapsular biceps tendon consistent with tendinosis. The extra-articular biceps tendon is in the bicipital groove. LIGAMENTS: GLENOHUMERAL: Unremarkable. Intact. MUSCLES: Unremarkable. No rotator cuff muscle atrophy. FLUID: Unremarkable. No joint effusion. Trace subacromial-subdeltoid space bursal fluid. CARTILAGE: Unremarkable. Articular cartilage intact. GLENOID LABRUM: Unremarkable. Intact, limited evaluation on non-arthrographic exam. BONES/JOINTS: Moderate marrow edema in the greater tuberosity. No fracture. MRI/Upper Ext Joint Only(Routine) IMPRESSION: 1. Full-thickness supraspinatus tendon tear. 2. Greater tuberosity avulsion fracture. 3. Chronic biceps tendinosis. Electronically Signed: Carmella Hsu MD at 19:30 EDT Reading Location ID and State: [id number] / Tel , Service support ,
== END | disposition home or self-care (01) ==
PROVIDERS: PCP Family Medicine; Referring Provider Orthopaedic Surgery Sports Medicine; Visit Provider Orthopaedic Surgery Sports Medicine
DX: S40.012A Contusion of left shoulder, initial encounter (principal); M75.102 Unspecified rotator cuff tear or rupture of left shoulder, not specified as traumatic; S42.252A Displaced fracture of greater tuberosity of left humerus, initial encounter for closed fracture
CPT/HCPCS: 73221

== ENCOUNTER → 2021-12-03 | Outpatient (CLI) | payer OTHER, SELFPAY ==
--- NOTE | 2021-12-03 10:11 | RAD_ITS ---
EXAM: XR CHEST, 2 VIEWS CLINICAL INDICATION: PLEURAL EFFUSION TECHNIQUE: Frontal and lateral views of the chest. This report was created using [employer] report generation technology. COMPARISON: 11/13/2021 FINDINGS: LUNGS AND PLEURAL SPACES: Left-sided pleural effusion has mildly decreased from the reference exam. No pneumothorax. HEART: Unremarkable. Cardiac silhouette not enlarged. MEDIASTINUM: Central airways and mediastinal contour are unremarkable. BONES/JOINTS: Unremarkable. SOFT TISSUES: Unremarkable. RAD/Chest PA and Lateral IMPRESSION: Mild decrease in left-sided pleural effusion. Electronically Signed: Jean-Paul Chung MD at 23:43 EDT ,
== END | disposition home or self-care (01) ==
LOC: RAD 10:06
PROVIDERS: PCP Family Medicine; Referring Provider Family Medicine; Visit Provider Family Medicine
DX: J90 Pleural effusion, not elsewhere classified (principal)
CPT/HCPCS: 71046

== ENCOUNTER 2022-01-04 07:30 | Outpatient (RCR) | payer OTHER, SELFPAY ==
--- NOTE | 2021-11-23 11:46 | HP.PTEVAL ---
Patient's Visit Information PRAKASH JIMENEZ is a 51 year old M referred to Physical Therapy by Dr. Edgard Coppola MD with a diagnosis of Left Shoulder. Date of Evaluation: 11/23/21 Physical Therapist: Lucy Xiong DPT - Visit Plan Frequency: 2x /Week Duration: 2 Weeks Plan: Focus on UE ROM, scapular s/s- functional mobility. HEP Given IE: Pendulums, Table Walk Away (flexion and abduction), wall wash flexion - Subjective Patient reports that he fell about a month and a half ago and hurt his left shoulder. Knew his shoulder was injured- but he had 10 broken ribs so that was on the back burner- x-rays showed no fracture in the shoulder. Had more images and he does have a fracture and a possible RTC tear. He has an MRI on the 27 of November. If he is idle the pain is not so bad but if he moves it alot its pretty sore. Right hand domiante. Worst: 610 Agg: movement, sleeping on it. Eases: leaving it at his side Best: 1-210. Pain is located more in the back of the shoulder- radiates into the bicep but not past the elbow. No N/T in the left hand when awake but some at night. Sleep: disturbed- hard to get comfortable and will wake him- side sleeper. No issues with finger dexterity or light armored vehicle officer strength. No neck pain, blurred vision, dizziness or SHAIKH. 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 He feels that he is back to 30% of his normal ADL's. PMHx/Meds: no changes since ortho visit- see chart - Objective Posture: FH, RS- increased guarding of the left UE- no sling. Palpation: tender along infraspinatus, medial border of the scapula, deltoid. ROM: AROM: Flexion: 75 degrees, Abd: 60 degrees, IR: greater troch, ER: 20 degrees, PROM: significant guarding flexion: 90 degrees, Abd: 80 degrees, IR: to belly, ER: 40 degrees. Cervical: WNL, Elbow/Wrist: WNL. Strength: Wrist: 5/5, Fuel Pilot Engineer: equal to other side, Elbow: 4+/5 no pain, Shoulder: 3+/5 in neutral with pain. - Balance/Special Test Scores Quick DASH Score: 50.0000 - Goals Goal 1:: Patient will be I with HEP and progression Goal Time Frame: 4-6 Weeks Goal 2:: Patient will demo full AROM of the left shoulder Goal Time Frame: 4-6 Weeks Goal 3:: Patient will maintain proper posture t/o tx session to demo scap s/s. Goal Time Frame: 4-6 Weeks Goal 4:: Patient will report 80% improvement Goal Time Frame: 4-6 Weeks - Rehabilitation Potential Physical Therapy Diagnosis: Patient presents with hypomobility- she has decreased ROM, scapular strength/stabilization and muscular endurance leading to poor posture and increased scap s/s. Rehabilitation Potential: Fair - Anticipated Interventions Patient/Client Instruction: Educate patient on: Benefits of Fitness Program Therapeutic Exercise to Include: Strength training, Endurance training, Coordination, Agility training, Body mechanics, Postural training, Flexibilty training, Passive ROM, Active ROM, Dynamic Lumbar Stabilization, Scapular Strength/Stabilization For the Purpose of:: To improve muscle performance and motor function Manual Therapy Techniques to Include: Passive ROM, Soft tissue mobilization TENS: Yes Cryotherapy (ice pack, ice massage): Yes Thermo therapy (hot pack): Yes Ultrasound (thermal/non thermal): Yes Thank you for the opportunity to evaluate your patient. For Medicare and Medicare HMO plans, please review the plan of care and approve it. It will need to be FAXED BACK to us at [phone] for Medicare purposes. For Medicare only, by signing this I certify the plan of care. Please let me know if there are questions or concerns regarding this plan of care. Physician Signature: Date:
--- NOTE | 2022-05-06 08:19 | HP.PT.NRP ---
PRAKASH JIMENEZ was seen in my office for initial evaluation on 11/23/21. The following Plan of Care was established for this patient: Initial Frequency: 2x /Week Initial Duration: 2 Weeks Patient/Client Instruction: Educate patient on: Benefits of Fitness Program Therapeutic Exercise to Include: Strength training, Endurance training, Coordination, Agility training, Body mechanics, Postural training, Flexibilty training, Passive ROM, Active ROM, Dynamic Lumbar Stabilization, Scapular Strength/Stabilization For the Purpose of:: To improve muscle performance and motor function Manual Therapy Techniques to Include: Passive ROM, Soft tissue mobilization TENS: Yes Cryotherapy (ice pack, ice massage): Yes Thermo therapy (hot pack): Yes Ultrasound (thermal/non thermal): Yes This patient was last seen in our office . Pertinent comments regarding their Physical therapy will appear below: Patient has not attended PT in over 30 days- appropriate to be d/c from PT and return to MD as appropriate At this point I will be discontinuing this patient from physical therapy. I would be happy to see this patient again in the future if found appropriate by the physician. Thank you! Lucy Xiong, ACET Balance/Gait/Functional tests - Balance/Special Test Scores Quick DASH Score: 50.0000
== END 2022-01-04 19:00 | disposition home or self-care (01) ==
LOC: PT 07:30
PROVIDERS: PCP Family Medicine; Referring Provider Orthopaedic Surgery Sports Medicine; Visit Provider Orthopaedic Surgery Sports Medicine
DX: M75.102 Unspecified rotator cuff tear or rupture of left shoulder, not specified as traumatic (principal); S40.012D Contusion of left shoulder, subsequent encounter
CPT/HCPCS: 97110; 97162